=== PATIENT | female | born 1955 | race Caucasian/White ===

== ENCOUNTER 2022-05-24 11:57 | Emergency (ER) | payer MEDICARE, BC, SELFPAY ==
[2022-05-24 12:27] VITALS: BP 199/127; PULSE 115; RESP 16; TEMP 36.2; O2SAT 97; BMI 29.9
[2022-05-24 12:30] VITALS: BP 183/106; PULSE 99; O2SAT 95
--- NOTE | 2022-05-24 12:44 | ED_ITS ---
HPI - Abdominal Pain General Time Seen by Provider: 12:44 Date Seen: 05/24/22 Chief Complaint: Abdominal Pain Stated Complaint: Abdominal pain and black tarry stool Time Seen by Provider: 05/24/22 12:44 Source: patient, RN notes reviewed and old records reviewed Mode of arrival: ambulatory Limitations: no limitations History of Present Illness HPI narrative: Mark Anthony is a very pleasant 67-year-old female with a history of type 2 diabetes, hypertension, sigmoidectomy secondary to diverticulitis with perforation, appendectomy, cholecystectomy and history of polypectomy who comes to the emergency room with concerns regarding dark stools. Patient notes the onset of explosive diarrhea on May 20. She said at that time it felt like the stools were acid and were burning and this flared her hemorrhoids. She has had a little bit of blood from her hemorrhoids but is more concerned about the dark tarry stools that started on TuesdayMay 21. She notes that if she does not eat she does not have stools but as soon as she eats she has increasing pain in the lower abdomen and then dark tarry stools. She states that she has not eaten anything today. The pain in her lower abdomen goes away once she has the bowel movement. She is not his history of GI bleed in the past. She denies any fevers aches or shortness of breath. She also denies any chest pain. MD elicited complaint: abdominal pain (Prior to bowel movements) Pertinent past history: diverticulitis Onset (ago): day(s) Pain Consistency: intermittent Location: suprapubic Severity: moderate Quality: cramping Radiation: none Migration to: no migration Exacerbating factors: eating Relieving factors: nothing Associated symptoms: diarrhea and melena Related Data Home Medications Medication Instructions Recorded Confirmed amlodipine 5 mg tablet 5 mg PO DAILY 05/24/22 05/24/22 aspirin 81 mg tablet,delayed 81 mg PO DAILY 05/24/22 05/24/22 release (Adult Low Dose Aspirin) estradiol 0.01% (0.1 mg/gram) 0.5 appful vaginal 2XW 05/24/22 05/24/22 vaginal cream (Estrace) hydrochlorothiazide 25 mg tablet 25 mg PO DAILY 05/24/22 05/24/22 lisinopril 20 mg tablet 20 mg PO DAILY 05/24/22 05/24/22 metformin 500 mg tablet 500 mg PO BID 05/24/22 05/24/22 omeprazole 20 mg capsule,delayed 20 mg PO DAILY 05/24/22 05/24/22 release simvastatin 20 mg tablet 20 mg PO DAILY 05/24/22 05/24/22 Allergies Allergy/AdvReac Type Severity Reaction Status Date / Time bee venom protein (honey bee) Allergy Intermediate Difficulty Verified 05/24/22 12:24 Breathing latex AdvReac Intermediate Rash Verified 05/24/22 12:24 sulfas Allergy Intermediate Difficulty Uncoded 05/24/22 12:23 Breathing Review of Systems Status of ROS Reports: 10 or more systems reviewed and unremarkable except as noted in History and below Const Denies: fever, chills, fatigue or malaise Eyes Denies: change in vision ENMT Denies: throat pain, neck pain, throat swelling or difficulty swallowing Cardio Denies: chest pain, palpitations, swelling of feet/ankles or shortness of breath with exertion Resp Denies: shortness of breath or cough GI Reports: abdominal pain and blood in stool (Small bright red when hemorrhoids are painful); Denies: nausea, vomiting or difficulty swallowing Denies: painful urination or urinary frequency Musculo Denies: back pain or neck pain Integ/Breast Denies: rash Neuro Denies: headache or numbness in extremities Psych Denies: anxiety Endo Denies: fatigue Allergy/Immuno Denies: throat swelling PFSH PFSH Social History Smoking Status: Unknown if ever smoked How often do you have a drink containing alcohol: monthly or less How often do you have six or more drinks on one occasion: Never AUDIT-C Alcohol total score: 1 Non-prescribed substance use: denies use Exam Narrative: Exam Narrative: Anaphylactic reaction To bee venom. Diverticulitis See scanned 10/06/17 CT A&P from [facility]. 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 See scanned [facility] imaging. Mixed hyperlipidemia Abstracted [facility] record. History of colon polyps On 10/28/11 colonoscopy. Repeat 5Y. Abstracted [facility] record. Type 2 diabetes mellitus Abstracted [facility] record. History of vitamin D deficiency Abstracted [facility] record. Bipolar affective disorder Abstracted [facility] record. Constipation Surgical Problems: S/P laparoscopic-assisted sigmoidectomy & appy/cecectomy for microperforated divertic & appy polyp. See NH&C notes by Dr. George. History of section Abstracted [facility] record. History of tubal ligation Abstracted [facility] record. History of colonoscopy with polypectomy Repeat 5Y/3Y. See NH&C note. Hx laparoscopic cholecystectomy 11/07/18 [facility]&C. Const: Vital Signs, click to edit/add: Vital Signs - 24 hr 05/24/22 12:27 05/24/22 12:30 05/24/22 14:24 Temperature 97.1 F L Pulse Rate [Pulse Oximeter] 115 H 99 85 Respiratory Rate 16 18 Blood Pressure [Ri ght Upper Arm] 199/127 H 183/106 H 146/80 H Pulse Oximetry 97 95 Oxygen Delivery Me thod Room Air Documenting provider has reviewed patient's vital signs: yes Common normals: no apparent distress, average body habitus, oriented x3, healthy appearing, alert and well nourished General appearance: cooperative, comfortable and well kempt HENMT: Common normals: normocephalic, head/scalp atraumatic and external ears normal Head and scalp: normocephalic and atraumatic External ear: external ears normal Eye: Common normals: PERRL General eye: normal appearance of both eyes Pupil: PERRL Neck & C-Spine: Common normals: full ROM, no lymphadenopathy and supple Resp: Common normals: normal respiratory effort and clear to auscultation bilaterally Effort & inspection: able to speak in complete sentences Auscultation: clear to auscultation bilaterally Cardio: Common normals: regular rhythm Rate: tachycardic Rhythm: regular rhythm GI: Common normals: soft to palpation and non-tender Palpation: soft Rectal Exam - Female: external hemorrhoid(s) and heme negative stool Extremity: Common normals: normal to inspection and no pedal edema Neuro: Common normals: oriented x3 Sensorium/orientation: alert Psych: Common normals: mental status grossly normal and thought process normal Appearance: well kempt Thought process: normal thought process Thought content: normal thought content Skin: Common normals: no rashes or lesions noted General skin exam: no rashes or lesions noted Course Course Hospital Course: Patient is noted to have multiple GI procedures including sigmoidectomy, cholecystectomy, polypectomy. Patient will have IV placed and labs drawn to include CBC, comprehensive panel, CRP and urinalysis. Will give 1 L of normal saline. Guaiac today of a small amount of stool was negative. CT pending Reevaluation(s) Reevaluation #1: Patient noted to be feeling better after fluids. Vital Signs Vital signs: Initial Vital Signs Temperature 97.1 F L 05/24/22 12:27 Temperature Source Temporal Artery Scan 05/24/22 12:27 Pulse Rate 115 H 05/24/22 12:27 Respiratory Rate 16 05/24/22 12:27 Blood Pressure 199/127 H 05/24/22 12:27 Blood Pressure Mean 151 05/24/22 12:27 Pulse Oximetry 97 05/24/22 12:27 Oxygen Delivery Method 05/24/22 12:27 Vital Signs Temperature 97.1 F L 05/24/22 12:27 Pulse Rate 115 H 05/24/22 12:27 Respiratory Rate 16 05/24/22 12:27 Blood Pressure 199/127 H 05/24/22 12:27 Pulse Oximetry 97 05/24/22 12:27 Oxygen Delivery Method 05/24/22 12:27 Temperature 97.1 F L 05/24/22 12:27 Pulse Rate 85 05/24/22 14:24 Respiratory Rate 18 05/24/22 14:24 Blood Pressure 146/80 H 05/24/22 14:24 Pulse Oximetry 95 05/24/22 12:30 Oxygen Delivery Method 05/24/22 12:27 MDM - Abdominal Pain MDM Narrative Medical decision making narrative: 1. Gastroenteritis-CT reassuring with no evidence of diverticulitis or colitis. Guaiac negative. Patient does reveal to me that she had taken Pepto-Bismol and I think this is likely the cause of her dark stools. Although, with her history, I do think thorough workup was needed. Hemoglobin is reassuring. White count slightly elevated but no evidence of diverticulitis or UTI. Patient also has reassuring CRP. Will continue to monitor. [place] foods and fluids are recommended. No antibiotics at this time. Doubtful that this is bacterial or food poisoning with patient's lack of vomiting, nausea or fever. 2. Hypertension-patient's blood pressure improved to 146/80. Pulse much improved after normal saline. 3. Disposition-patient is discharged home. Did recommend cessation of tobacco use. Recommend returning for any worsening symptoms and as needed. Medical Records Attestation: I reviewed the patient's medical records. Lab Data Attestation: I reviewed the patient's lab results. Labs: Lab Results 05/24/22 05/24/22 05/24/22 Range/Units 13:20 13:20 13:40 WBC 11.66 H (4.50-11.00) K/uL RBC 4.75 (4.00-5.20) m/uL Hgb 14.6 (12.0-16.0) gm/dL Hct 43.2 (33.0-51.0) % MCV 91 (80-100) fL MCH 31 (26-34) pg MCHC 34 (32-36) gm/dL RDW Coeff of Camilo 12.9 (11.5-15.5) % Plt Count 312 (140-440) K/uL Neut % (Auto) 63.6 (42.0-72.0) % Lymph % (Auto) 28.2 (20-44) % [place] % (Auto) 6.2 (0.0-11.0) % Eos % (Auto) 1.4 (0.0-7.0) % Baso % (Auto) 0.4 (0.0-3.0) % Neut # (Auto) 7.40 H (1.7-7.0) K/uL Lymph # (Auto) 3.30 H (0.90-2.90) K/uL [place] # (Auto) 0.70 (0.00-0.90) K/UL Eos # (Auto) 0.20 (0.00-0.50) K/uL Baso # (Auto) 0.00 (0.00-0.30) K/uL Abs Immat Gran (auto) 0.02 (0.00-0.30) K/uL Sodium 138 (135-149) mmol/L Potassium 3.7 (3.6-5.1) mmol/L Chloride 104 (96-114) mmol/L Carbon Dioxide 26 (20-32) mmol/L BUN 10 (7-30) mg/dL Creatinine 0.8 (0.5-1.5) mg/dL Estimated Creat Clear 52.51 Estimated GFR 82 ml/min Glucose 112 (60-115) mg/dL Calcium 9.5 (8.4-10.6) mg/dL Total Bilirubin 0.4 (0.1-1.5) mg/dL AST 24 (12-35) U/L ALT 20 (4-35) U/L Alkaline Phosphatase 127 (40-150) U/L C-Reactive Protein 0.7 (0.5-1.0) mg/dL Total Protein 7.5 (6.0-8.3) g/dL Albumin 4.4 (3.3-5.0) g/dL Urine Color Yellow (Yellow) Urine Appearance Clear (Clear) Urine pH 6.5 (5.0-8.5) Ur Specific [place] 1.015 (1.000-1.030) Urine Protein Negative (Negative) Urine Glucose (UA) Negative (Negative) Urine Ketones Negative (Negative) Urine Blood Negative (Negative) Urine Nitrite Negative (Negative) Urine Bilirubin Negative (Negative) Urine Urobilinogen 0.2 (0.2-1.0) Ur Leukocyte Esterase Negative (Negative) Imaging Data CT scan - abdomen: Attestation: I have reviewed the pertinent imaging results. My impression: No acute findings Radiologist's impression: No acute findings Discharge Plan Discharge Clinical Impression: Gastroenteritis Patient Disposition: Home, Self-Care Condition: Improved Additional Instructions: Push fluids and bland foods. Seek medical attention and recheck should you have any blood return in your stools. Return also for fever and worsening discomfort. Prescriptions: No Action metformin 500 mg tablet 500 mg PO BID aspirin [Adult Low Dose Aspirin] 81 mg tablet,delayed release (DR/EC) 81 mg PO DAILY lisinopril 20 mg tablet 20 mg PO DAILY omeprazole 20 mg capsule,delayed release(DR/EC) 20 mg PO DAILY amlodipine 5 mg tablet 5 mg PO DAILY estradiol [Estrace] 0.01 % (0.1 mg/gram) cream 0.5 appful vaginal 2XW hydrochlorothiazide 25 mg tablet 25 mg PO DAILY simvastatin 20 mg tablet 20 mg PO DAILY Follow Up/Referrals: Liam Epstein MD [Primary Care Provider] - Stand Alone Forms: [employer] Info Instructions
[2022-05-24] MEDS: 0.9 % SODIUM CHLORIDE 1000 ml 1,000 ML IV (13:05)
--- NOTE | 2022-05-24 13:06 | ED.NURSE ---
Provider performed occult guaiac screen and this was negative
[2022-05-24 13:26] LABS: Basophils Percent Auto 0.4 % (0.0-3.0); Eosinophils Percent Auto 1.4 % (0.0-7.0); Hematocrit 43.2 % (33.0-51.0); Hemoglobin* 14.6 gm/dL (12.0-16.0); Immature Granulocytes Abs Auto 0.02 K/uL (0.00-0.30); Lymphocytes Percent Auto 28.2 % (20-44); Mean Corpuscular HGB Conc 34 gm/dL (32-36); Mean Corpuscular Hemoglobin 31 pg (26-34); Mean Corpuscular Volume 91 fL (80-100); Monocytes Percent Auto 6.2 % (0.0-11.0); Neutrophils Percent Auto 63.6 % (42.0-72.0); Platelet Count* 312 K/uL (140-440); RDW Coefficient of Variation % 12.9 % (11.5-15.5); Red Blood Count 4.75 m/uL (4.00-5.20); White Blood Count* 11.66 K/uL (4.50-11.00)
[2022-05-24 13:29] LABS: Slide Review Reflex No
[2022-05-24 13:48] LABS: Albumin* 4.4 g/dL (3.3-5.0); Chloride* 104 mmol/L (96-114); Sodium* 138 mmol/L (135-149)
[2022-05-24 13:49] LABS: Potassium* 3.7 mmol/L (3.6-5.1)
[2022-05-24 13:49] LABS: Appearance Urine Clear (Clear); Bilirubin Urine Negative (Negative); Blood Urine Negative (Negative); Color Urine Yellow (Yellow); Glucose Urine Negative (Negative); Ketones Urine Negative (Negative); Leukocyte Esterase Urine Negative (Negative); Nitrite Urine Negative (Negative); Protein Urine Negative (Negative); Specific Gravity Urine 1.015 (1.000-1.030); Urobilinogen Urine 0.2 (0.2-1.0); pH Urine 6.5 (5.0-8.5)
[2022-05-24 13:51] LABS: Bilirubin Total* 0.4 mg/dL (0.1-1.5); Creatinine* 0.8 mg/dL (0.5-1.5); Est. Creatinine Clearance* 52.51; Estimated Glomerular Filt Rate 82 ml/min
[2022-05-24 13:52] LABS: Alanine Aminotransferase* 20 U/L (4-35); Alkaline Phosphatase* 127 U/L (40-150); Aspartate Amino Transferase* 24 U/L (12-35); Blood Urea Nitrogen* 10 mg/dL (7-30); Calcium* 9.5 mg/dL (8.4-10.6); Carbon Dioxide* 26 mmol/L (20-32); Glucose* 112 mg/dL (60-115); Total Protein* 7.5 g/dL (6.0-8.3)
[2022-05-24 13:55] LABS: C Reactive Protein* 0.7 mg/dL (0.5-1.0)
--- NOTE | 2022-05-24 14:07 | CRLHL7_ITS ---
For Patients: As a result of the Century Cures Act, medical imaging exams and procedure reports are released immediately into your electronic medical record. You may view this report before your referring provider. If you have questions, please contact your health care provider. INDICATION: Abdominal pain with dark stools. TECHNIQUE: CT abdomen and pelvis acquired with 91 mL Isovue 370 IV contrast. Coronal and sagittal reformats were generated. COMPARISON: CT of the abdomen and pelvis from 10/12/2017. FINDINGS: Lower chest: Bibasilar atelectasis. Liver: Unremarkable. Gallbladder and bile ducts: Surgically absent gallbladder. Prominence of the common bile duct is likely the result of reservoir effect. Spleen: Unremarkable. Small adjacent splenule. Pancreas: Unremarkable. Adrenal glands: Unremarkable. No nodules. Kidneys and Ureters: Unremarkable. No suspicious masses, stones, or hydronephrosis. Cortical hypodensities are probably cysts. Lymph Nodes and Retroperitoneum: Unremarkable. Vasculature: Atherosclerotic calcifications of the abdominal aorta and its branches. GI tract: Unremarkable. Normal in caliber. Probable appendectomy. Suture line in the rectosigmoid region is suggestive of prior low anterior resection. Peritoneum/Abdominal Wall: Unremarkable. No mass or infiltration. No free air or free fluid. Pelvic Viscera: Unremarkable. Bladder: Unremarkable. Bones: Unremarkable for age. IMPRESSION: No significant CT abnormality or findings to explain the cause of the patient`s symptoms. Please note that all CT scans at this facility use dose modulation, iterative reconstruction, and/or weight-based dosing when appropriate to reduce radiation dose to as low as reasonably achievable. Dictated by Cleve Patiño MD @ 05/24/2022 3:07:36 PM (Electronically Signed)
[2022-05-24 14:24] VITALS: BP 146/80; PULSE 85; RESP 18
[2022-05-25 07:47] LABS: RBC Urine 0-2 (0-2); WBC Urine 0-2 (0-5)
== END 2022-05-24 15:46 | disposition home or self-care (01) ==
PROVIDERS: Emergency Provider Family Medicine; PCP Family Medicine
DX: K52.9 Noninfective gastroenteritis and colitis, unspecified (principal); I10 Essential (primary) hypertension
CPT/HCPCS: 36415; 74177; 80053; 81001; 85025; 86140; 99284; 99285; J7030; Q9967

== ENCOUNTER 2022-06-21 10:59 | Outpatient (CLI) | payer MEDICARE, BC, SELFPAY ==
--- OUTSIDE RECORDS SUMMARY | 2022-06-21 10:03 | XMS_ITS | Clinical Summary ---
:1955 Author Organization [email or web address] [facility] [place] [address] Care Team Providers Name Role Phone Magnus Snider MD Unavailable Unavailable Ney Willson MD Primary Care Provider [phone] Allergies Active Allergy Reactions Severity Noted Date Comments Latex Hives 10/26/2011 Sulfa (Sulfonamide Antibiotics) Hives 9 Venom-Honey Bee Respiratory Distress 11/02/2013 Bupropion Rash 03/12/2009 Medications Medication Sig Dispensed Refills Start Date End Date Status EPINEPHrine (EPIPEN) 0.3 Inject 0.3 mg 2 pen 1 03/02/2014 Active mg/0.3 mL (1:1,000) intramuscular one injection time if needed for Allergic Reaction for 1 dose. Cholecalciferol, Vitamin Take 1 tablet by 0 06/01/20 16 Active D3, (VITAMIN D-3) 5,000 mouth once daily. unit tab amLODIPine (NORVASC) 5 Take 1 tablet by 90 tablet 3 10/21/2017 Active mg tabletIndications: mouth once daily. HTN (hypertension) hydroCHLOROthiazide Take 1 tablet by 90 tablet 3 10/21/2017 Active (HCTZ) 25 mg mouth once daily. tabletIndications: HTN (hypertension) lisinopril (PRINIVIL; Take 1 tablet by 90 tablet 3 10/21/2017 Active ZESTRIL) 20 mg mouth once daily. tabletIndications: HTN (hypertension) metFORMIN (GLUCOPHAGE) Take 1 tablet by 2 01/01/2019 Active 500 mg tablet mouth 2 times daily with meals. simvastatin (ZOCOR) 20 Take 1 tablet by 2 01/01/2019 Active mg tablet mouth at bedtime. STOOL SOFTENER-LAXATIVE Take 1 Tab by 0 11/10/2018 Active 8.6-50 mg tablet mouth once daily if needed. CONTOUR NEXT TEST STRIPS 2 01/01/2019 Active strip CONTOUR NEXT METER 0 01/01/2019 Active MICROLET LANCET 2 01/01/2019 Act maria dolores Active Problems Problem Noted Date Vitamin D insufficiency 05/26/2016 Obesity 10/24/2013 Anxiety disorder 10/17/2012 Personal history of colonic polyps 10/28/2011 Overview: Colonoscopy 09/2011 polyp repeat in 5 yea rs Mixed hyperlipidemia 08/24/2010 Impaired fasting glucose 11/08/2008 Bipolar Disorder, Unspecified 10/30/2008 HTN (hypertension) 10/30/2008 Overview: Updated by system to replace inactive re cord TOBACCO ABUSE 07/29/2004 ASTHMA, INTERMITTENT, MILD 07/29/2004 Resolved Problems Problem Noted Date Resolved Date INCONTINENCE - MIXED 07/29/2004 05/10/2012 ELEVATED BLOOD PRESSURE 07/29/2004 10/30/2008 Immunizations Name Administration Dates Next Due Influenza, IIV3 (Age >=3 years) 05/16/2013, 06/12/2012 Influenza, IIV4 10/10/2017, 07/13/2016 Pneumococcal Poly,23-Valent (Pneumovax) 08/08/2012 Tdap 08/15/2010 Family History Medical History Relation Name Comments Heart Disease Brother 1 Nathen aortic aneurysm Hypertension Brother 2 Bi Psychiatric illness Brother 3 Depression, ?mood d/o Psychiatric illness Daughter PDO, BPAD Cancer Father Carl Esophageal/Bone Cancer-colon Father Carl Cancer-prostate Father Carl Heart Disease Maternal Aunt Cancer-breast Maternal Grandmother Alcohol/Drug Mother Kanchan ETOH Genetic Other mother HTN, urge /stress incontinence~fat her age 67, prostate CA, col on CA, other primaries~brothe r aortic aneurysm repair age 49~so n A\T\W~grandparen ts DM Diabetes Paternal Grandfather Cancer-breast Paternal Grandmother Psychiatric illness Sister BPAD Psychiatric illness Son Depression, anxiety Anesthesia Problem No Family History Relation Name Status Comments Brother 1 Nathen Alive Aortic Aneurysm Repair Brother 2 Bi Alive Brother 3 Daughter Father Carl (Age 66) Maternal Aunt Maternal Grandmother Mother Kanchan Alive Other Paternal Grandfather Paternal Grandmother Sister Son Social History Tobacco Use Types Packs/Day Years Used Date Current Every Day Smoker Cigarettes 1 40 Daniel t: 11/30/2017 Smokeless Tobacco: Never Used Tobacco Cessation: Ready to Quit: No; Co unseling Given: Yes Alcohol Use Standard Drinks/Week Comments No 0 (1 standard drink = 0.6 oz pure Heavy use 18-25, 5 CD treatments alcohol) Alcohol Habits Answer Date Recorded How often do you have a drink Not asked containing alcohol? How many drinks containing alcohol do Not asked you have on a typical day when you are drinking? How often do you have six or more Not asked drinks on one occasion? Comment: Heavy use 18-25, 5 CD treatments 013 Sex Assigned at Date Recorded Not on file Obstetrics History Para Term AB IAB SAB Ectopic Multiple Living Live Births 4 2 1 1 2 Date Outcome GA Total Labor/2nd/3rd Weight Sex Delivery Anes PTL Hanh A 1 A5 Name Clin Labor Para Para SAB Last Filed Vital Signs Vital Sign Reading Time Taken Comments Blood Pressure 132/84 01/08/2019 9:44 AM CDT Pulse 82 01/08/2019 9:44 AM CDT Temperature 36.6 ??C (97.9 ??F) 01/08/2019 9:44 AM CDT Respiratory Rate 16 01/08/2019 9:44 AM CDT Oxygen Saturation 99% 01/08/2019 9:44 AM CDT Inhaled Oxygen - - Concentration Weight 90.5 kg (199 lb 9.6 01/08/2019 9:44 AM Pt weighe d with shoes oz) CDT on. Height 167 cm (5' 5.75) 01/03/2018 10:40 AM CDT Body Mass Index 32.46 01/03/2018 10:40 AM CDT Plan of Treatment Health Maintenance Due Date Last Done Comments COVID-19 vaccine series (#1) 1955 Zoster (shingles) series for age 0602/09/2007 50+ (1 of 2) Pneumococcal series for age 65+ (2 08/08/2013 08/08/2012 - PCV) Depression screening for age 12+ 10/05/2018 10/05/2017, 01/2017, 03/26/2016, Additional history exists BMI (ht and wt on same day) for 01/03/2019 01/03/2018, 11/27, age 18+ 11/04/2017, Additional history exists Mammogram for age 45-75 01/03/2019 01/03/2018, 06/01/2016, 01/08/2015, Additional history exists Tetanus booster 08/15/2020 08/15/2010 DEXA/DXA scan for age 65+ 2022 Influenza for age 65+ 04/29/2022 10/10/2017, 07/13/2016, 05/16/2013, Additional history exists Lipids for age 45-75 09/06/2022 09/06/2017, 06/03/2016, 01/08/2015, Additional history exists Colonoscopy through age 75 07/14/2023 07/14/2018, 8, 11/30/2017, Additional history exists Pap test for age 21-65 03/16/2024 03/16/2021, 03/16/2021, 10/06/2011, Additional history exists Tdap Completed 08/15/2010 Hepatitis C screening for age Completed 10/06/2011 18-79 Results Not on filefrom Last 3 Months Insurance Payer Benefit Plan / Subscriber ID Effective Dates Phone Addre ss Type Group [employer] [place] [employer] [place] [id number] 2016-Present [address] [address] [place] [address] [employer] [place] [employer] [id number] 2018-Present [address] [address] [place] [address] Guarantor Name Account Type Relation to Date of Phone Bill ing Patient Address Luis Shah Personal/Family 08/28/1956 [address] (Home) [address] [place] [address] Care Teams Phlebotomy Coordinator Relationship Specialty Start Date End Date Ney Willson, PCP - General Family Practice 10/18/[address] [address] Magnus Snider MD Gynecology Obstetrics and Gynecology 10/06/11
[2022-06-21 11:18] LABS: Cholesterol* 206 mg/dL (90-199); Triglycerides* 165 mg/dL (40-149)
[2022-06-21 11:19] LABS: HDL Cholesterol* 48 mg/dL (>=50); LDL Cholesterol Calculated 125 mg/dL (<100)
[2022-06-21 11:24] LABS: Creatinine Urine 42.1 mg/dL
[2022-06-21 11:28] LABS: Microalbumin Creatinine Ratio 20 mg/g (0-30); Microalbumin Urine < 1 mg/dL
[2022-06-21 11:35] LABS: Vitamin D 25 Hydroxy* 43 ng/mL (30-80)
== END 2022-06-21 11:00 | disposition home or self-care (01) ==
PROVIDERS: PCP Family Medicine; Visit Provider Family Medicine
DX: Z00.00 Encounter for general adult medical examination without abnormal findings (principal); E11.9 Type 2 diabetes mellitus without complications; E55.9 Vitamin D deficiency, unspecified; I10 Essential (primary) hypertension; E78.5 Hyperlipidemia, unspecified
CPT/HCPCS: 80061; 82043; 82306; 82570

== ENCOUNTER 2022-09-08 06:51 | Day surgery (SDC) | payer MEDICARE, BC, SELFPAY ==
[2022-09-08] VITALS (7 sets, daily range): BP systolic 137–167; BP diastolic 64–82; PULSE 78–97; RESP 16–18; TEMP 36.5–36.6; O2SAT 95–98; BMI 29.8
[2022-09-08] MEDS: BUPIVACAINE 0.5% 30 ML INJECTION (07:05)
[2022-09-08] MEDS: LIDOCAINE 1 % PF 30 ML INJECTION (07:18)
--- NOTE | 2022-09-08 08:17 | P.ORPRC_ITS ---
Procedure Note Date of procedure: 09/08/22 Procedure: PREOPERATIVE DIAGNOSIS: 1. Right index finger volar middle phalangeal benign mass POSTOPERATIVE DIAGNOSIS: 1. Right index finger volar middle phalangeal benign mass PROCEDURE: 1. Right index finger volar middle phalangeal benign mass open excision SURGEON: Rigo Araiza MD. WAREHOUSE RECEIVER: MISTY Soto - Of note, an bioinformatics assistant was critical for this case to aid in patient positioning, tissue retraction, limb manipulation/positioning, and closure. ANESTHESIA: Local anesthetic digital block (50:50 mixture of 2% lidocaine plain and 0.5% marcaine plain) IMPLANTS: None TOURNIQUET: Digital tourniquet for proximally 8 minutes COMPLICATIONS: None evident INDICATIONS: The patient is a pleasant 67-year-old female who has experienced right index finger middle phalangeal volar growth/mass development. This is painful and does cause some functional limitations for her. Nonoperative management has been tried but unsuccessful. Given the failure of nonoperative management, and how this affects daily life, surgery was recommended. DESCRIPTION OF PROCEDURE: Following a thorough discussion of risks, benefits, and alternatives consent was obtained and the operative extremity was marked. The patient was brought to the operating room and placed supine on the operating table. No antibiotics were administered as this was planned to be a local case only. Proper time-out was performed identifying proper patient, site, and procedure. The operative extremity was prepped and draped in the appropriate sterile fashion using ChloraPrep. The limb was exsanguinated and the tourniquet inflated. Hunter type incision was made across the middle phalanx diagonally. Sharp incision through skin and blunt dissection down to the flexor tendon sheath allowed us to immediately identify the mass/growth on the radial aspect of the volar middle phalangeal region. The growth/mass was discrete and buried well defined/distinguish from the surrounding tissue. It did seem to have a connection/vascular connection on the volar radial aspect. Bipolar cautery was utilized for this portion. The mass was removed EN bloc and sent for permanent pathology. Thorough irrigation normal saline was then performed. Tourniquet was released and hemostasis achieved. Closure was performed with 4-O nylon. Soft dressings were applied, and the patient was awoken/transferred to the recovery room in stable condition. PLAN: 1. Encourage elevation of the operative extremity. 2. Range of motion of the operative extremity/digits as tolerated. 3. Ibuprofen, acetaminophen and/or Percocet as needed for pain. 4. Follow up with PA visit in 12-16 days for wound check and suture removal.
[2022-09-08] MEDS: NEOMYCIN/BACITRACIN/POLYMYXIN B 1 APPLIC TOPICAL (08:18)
== END 2022-09-08 08:50 | disposition home or self-care (01) ==
PROVIDERS: PCP Family Medicine; Visit Provider Orthopaedic Surgery Sports Medicine
PROC: (CPT 26111; principal; 2022-09-08 07:45)
DX: D23.61 Other benign neoplasm of skin of right upper limb, including shoulder (principal)
CPT/HCPCS: 26111; 88305; 88341; 88342; J2001; J3490

== ENCOUNTER 2023-07-14 09:22 | Outpatient (CLI) | payer MEDICARE, BC, SELFPAY | END 2023-07-14 09:23 | disposition home or self-care (01) | LOC: NFLDREF 07-22 05:39 | PROVIDERS: PCP Family Medicine; Referring Provider Family Medicine; Visit Provider Family Medicine | DX: Z00.00 Encounter for general adult medical examination without abnormal findings (principal); E11.9 Type 2 diabetes mellitus without complications; I10 Essential (primary) hypertension; E78.2 Mixed hyperlipidemia | CPT/HCPCS: 80053; 80061; 82043; 82570 ==

== ENCOUNTER 2023-07-25 06:27 | Outpatient (CLI) | payer MEDICARE, BC, SELFPAY ==
--- NOTE | 2023-07-25 08:00 | W.ANESCHARGE ---
Anesthesia Charges Start Date/Time Anesthesia Start Date: 07/25/23 Anesthesia Start Time: 07:20 Stop Date/Time Anesthesia Stop Date: 07/25/23 Anesthesia Stop Time: 07:47
--- NOTE | 2023-07-25 10:34 | W.ANESCHARGE ---
Anesthesia Charges Start Date/Time Anesthesia Start Date: 07/25/23 Anesthesia Start Time: 07:20 Stop Date/Time Anesthesia Stop Date: 07/25/23 Anesthesia Stop Time: 07:47
== END 2023-07-25 06:28 | disposition home or self-care (01) ==
LOC: OP CLINIC 06:28
PROVIDERS: PCP Family Medicine; Visit Provider Internal Medicine
DX: Z12.11 Encounter for screening for malignant neoplasm of colon (principal); K63.5 Polyp of colon; K57.30 Diverticulosis of large intestine without perforation or abscess without bleeding; Z86.010 Personal history of colon polyps
CPT/HCPCS: 00811; 45380; 88305; J2704

== ENCOUNTER 2023-08-01 08:51 | Outpatient (CLI) | payer MEDICARE, BC, SELFPAY ==
--- NOTE | 2023-08-01 08:45 | CRLHL7_ITS ---
For Patients: As a result of the Cures Act, medical imaging exams and procedure reports are released immediately into your electronic medical record. You may view this report before your referring provider. If you have questions, please contact your health care provider. DIGITAL DIAGNOSTIC LEFT MAMMOGRAM PERFORMED WITH TOMOSYNTHESIS AND COMPUTER-AIDED DETECTION LEFT BREAST ULTRASOUND CLINICAL HISTORY: LEFT breast lump. COMPARISON: 04/20/2021. TECHNIQUE: Digital BILATERAL mammogram in four projections. Tomosynthesis and CAD utilized. Real-time ultrasound imaging of LEFT breast with imaging documentation. BREAST COMPOSITION: There are areas of scattered fibroglandular density. FINDINGS: 3D CC/MLO BILATERAL mammogram images submitted. Benign calcifications are present bilaterally. No suspicious masses or architectural distortion. No adenopathy. Targeted LEFT breast ultrasound performed at 10 o`clock 4 cm from the nipple. In this location there is a hypoechoic focus measuring 3 x 3 x 3 millimeters immediately beneath the skin within associated tract to the skin surface. No abnormal vascularity. IMPRESSION: Benign 3 millimeter sebaceous cyst LEFT breast 10 o`clock 4 cm from the nipple. No evidence of malignancy. RECOMMENDATIONS: Annual BILATERAL screening mammography. Results and recommendations discussed with the patient. BI-RADS Category 2: Benign A lay language report of this examination will be provided to the patient. Dictated by Sunny Park MD @ 08/01/2023 10:04:51 AM j/Dictated by: Sunny Park MD @ 08/01/2023 10:04:00 AM (Electronically Signed)
--- NOTE | 2023-08-01 09:15 | CRLHL7_ITS ---
For Patients: As a result of the Cures Act, medical imaging exams and procedure reports are released immediately into your electronic medical record. You may view this report before your referring provider. If you have questions, please contact your health care provider. PLEASE SEE DIGITAL DIAGNOSTIC LEFT MAMMOGRAM PERFORMED SAME DAY CRL:agustin velez/Dictated by: Sunny Park MD @ 08/01/2023 10:04:00 AM (Electronically Signed)
== END 2023-08-01 08:52 | disposition home or self-care (01) ==
PROVIDERS: PCP Family Medicine; Visit Provider Family Medicine
DX: N63.21 Unspecified lump in the left breast, upper outer quadrant (principal)
CPT/HCPCS: 76642; 77066; G0279

== ENCOUNTER 2023-09-15 15:32 | Outpatient (CLI) | payer MEDICARE, BC, SELFPAY ==
--- NOTE | 2023-09-15 15:30 | CRLHL7_ITS ---
For Patients: As a result of the Century Cures Act, medical imaging exams and procedure reports are released immediately into your electronic medical record. You may view this report before your referring provider. If you have questions, please contact your health care provider. DXA BONE MINERAL DENSITY STUDY Current height (in): 66.0. Weight (lb): 192.0. Menopause age: 52. Ethnicity: White. Reason for exam: Asymptomatic menopausal state. 1. Have you had a previous hip or vertebral fracture? No. 2. Have you had any fractures during your adult life which did not result from significant trauma (e.g., auto accident)? No. 3. Did either of your parents have a hip fracture? No. 4. Do you smoke? Yes. 5. Have you ever taken Glucocorticoids? No. 6. Do you have rheumatoid arthritis? No. 7. Do you have secondary osteoporosis? No. 8. Do you drink 3 or more alcoholic drinks per day? No. 9. Are you being treated for osteoporosis? No. 10. Have you ever taken any of the following medications: Actonel, Evista, Fosamax, Miacalcin, Reclast, Boniva, Forteo, HRT (i.e. estrogen/hormone therapy), Protelos, Prolia, Vitamin D, Calcium, other ??? please specify. ANSWER: Yes, vitamin D. 11. Do you have any of the following medical conditions: Anorexia or bulimia, asthma or emphysema, end stage renal disease, hyperparathyroidism, any seizure disorders, cancer, inflammatory bowel diseases, hysterectomy, other ??? please specify. ANSWER: Yes, asthma or emphysema. 12. What was your maximum height (inches)? 66. 13. Do you perform weight bearing exercise regularly? No. 14. Do you regularly consume dairy products? Yes. 15. Do you drink caffeinated beverages? Yes. 16. At what age did your period start? 18. 17. Are you premenopausal? No. 18. How many full term pregnancies have you had? 2. 19. Have you ever missed your period for more than 6 months in a row (not including or menopause)? No. TECHNIQUE: Bone mineral density study was performed using the [employer]. FINDINGS: The results of the study expressed as bone mineral density (BMD) are as follows: Lumbar spine L1 to L4: BMD: 0.859 g/cm2. T-score: -1.7. Z-score: 0.2 Neck Left: BMD: 0.656 g/cm2. T-score: -1.7. Z-score: -0.1 Right: BMD: 0.675 g/cm2. T-score: -1.6. Z-score: 0.0 Total Left: BMD: 0.766 g/cm2. T-score: -1.4. Z-score: -0.1 Right: BMD: 0.786 g/cm2. T-score: -1.3. Z-score: 0.0 IMPRESSION: Osteopenia. FRAX 10-year Fracture Risk Major Osteoporotic Fracture: 9.8 percent Hip Fracture: 2.1 percent Reported Risk Factors: [place] () Neck BMD = 0.656, BMI = 31.0 Contreras Delgado M.D. Diagnostic Radiologist [email or web address] Transcribed: 11:33 am DW/Dictated by: Contreras Delgado MD @ 09/16/2023 9:49:00 AM (Electronically Signed)
--- OUTSIDE RECORDS SUMMARY | 2023-09-15 15:39 | XMS_ITS | Clinical Summary ---
Author Name Unknown Organization [facility] Address [place], [place] [address] Care Team Providers Care Dinkey Engineer Name Role Phone Magnus Snider MD Unavailable Unavailable Ney Willson MD Primary Care Provider Allergies Active Allergy Reactions Criticality Noted Date Comments Latex Hives 10/26/2011 Sulfa (Sulfonamide Antibiotics) Hives 11/2008 Venom-Honey Bee Respiratory Distress 11/02/2013 Bupropion Rash 03/12/2009 Medications Medication Sig Dispensed Refills Start Date End Date Status EPINEPHrine (EPIPEN) 0.3 mg/0.3 mL (1:1,000) injection Inject 0.3 mg intramuscular one time if needed for Allergic Reaction for 1 dose. 2 pen 1 03/02/2014 Active Cholecalciferol, Vitamin D3, (VITAMIN D-3) 5,000 unit tab Take 1 tablet by mouth once daily. 0 06/01/2016 Active amLODIPine (NORVASC) 5 mg tabletIndications: HTN (hypertension) Take 1 tablet by mouth once daily. 90 tablet 3 10/21/2017 Active hydroCHLOROthiazid e (HCTZ) 25 mg tabletIndications: HTN (hypertension) Take 1 tablet by mouth once daily. 90 tablet 3 10/21/2017 Active lisinopril (PRINIVIL; ZESTRIL) 20 mg tabletIndications: HTN (hypertension) Take 1 tablet by mouth once daily. 90 tablet 3 10/21/2017 Active metFORMIN (GLUCOPHAGE) 500 mg tablet Take 1 tablet by mouth 2 times daily with meals. 2 01/01/2019 Active simvastatin (ZOCOR) 20 mg tablet Take 1 tablet by mouth at bedtime. 2 01/01/2019 Active STOOL SOFTENER-LAXATIVE 8.6-50 mg tablet Take 1 Tab by mouth once daily if needed. 0 11/10/2018 Active CONTOUR NEXT TEST STRIPS strip 2 01/01/2019 Active CONTOUR NEXT METER 0 01/01/2019 Active MICROLET LANCET 2 01/01/2019 Active Active Problems Problem Noted Date Diagnosed Date Vitamin D insufficiency 05/26/2016 Obesity 10/24/2013 Anxiety disorder 10/17/2012 Personal history of colonic polyps 10/28/2011 Overview: Colonoscopy 09/2011 polyp repeat in 5 years Mixed hyperlipidemia 08/24/2010 Impaired fasting glucose 11/08/2008 Bipolar Disorder, Unspecified 10/30/2008 HTN (hypertension) 10/30/2008 Overview: Updated by system to replace inactive record TOBACCO ABUSE 07/29/2004 ASTHMA, INTERMITTENT, MILD 07/29/2004 Resolved Problems Problem Noted Date Diagnosed Date Resolved Date INCONTINENCE - MIXED 07/29/2004 012 ELEVATED BLOOD PRESSURE 07/29/2004 03/0 11/2008 Encounters Date Type Department Care Team Description 07/25/2023 Lab Requisition [facility] [phone] Tray Gomez MD from Last 3 Months Immunizations Name Administration Dates Next Due Influenza, IIV3 (Age >=3 years) 05/16/2013,06/12 Influenza, IIV4 10/10/2017,07/13/2016 Pneumococcal Poly,23-Valent (Pneumovax) 08/08/20 12 Tdap 08/15/2010 Family History Medical History Relation Name Comments Heart Disease Brother 1 Nathen aortic aneurys m Hypertension Brother 2 Bi Psychiatric illness Brother 3 Depressi on, ?mood d/o Psychiatric illness Daughter PDO, BPA D Cancer Father Carl Esophageal/Bone Cancer-colon Father Carl Cancer-prostate Father Carl Heart Disease Maternal Aunt Cancer-breast Maternal Grandmother Alcohol/Drug Mother Kanchan ETOH Genetic Other mother HTN, urg e/stress incontinence~father age 67, prostate CA, colon CA, other primaries~brother aortic aneurysm repair age 49~son A\T\W~grandparents DM Diabetes Paternal Grandfather Cancer-breast Paternal Grandmother Psychiatric illness Sister BPAD Psychiatric illness Son Depressi on, anxiety Anesthesia Problem No Family History Relation Name Status Comments Brother 1 Nathen Alive Aortic Aneurysm Repair Brother 2 Bi Alive Brother 3 Daughter Father Carl (Age 66) Maternal Aunt Maternal Grandmother Mother Kanchan Alive Other Paternal Grandfather Paternal Grandmother Sister Son Social History Tobacco Use Types Packs/Day Years Used Date Smoking Tobacco: Every Day Cigarettes 1 40 Started: 11/30/1977; Last attempted to quit: 11/30/2017 Smokeless Tobacco: Never Tobacco Cessation:Ready to Q uit: No; Counseling Given: Yes Alcohol Use Standard Drinks/Week Comments No 0 (1 standard drink = 0.6 oz pure alcohol) Heavy use 18-25, 5 CD treatments Sex and Gender Information Value Date Recorded Sex Assigned at Not on file Gender Identity Not on file Sexual Orientation Not on file Obstetrics History Para Term AB IAB SAB Ectopic Multiple Livin g Live Births 4 2 1 1 2 Date Outcome GA Total Labor Labor//3rd Weight Sex Delivery Anes PTL Hanh A1 A5 Name Cl in Para Para SAB Last Filed Vital Signs Vital Sign Reading Time Taken Comments Blood Pressure 132/84 01/08/2019 9:44 AM CDT Pulse 82 01/08/2019 9:44 AM CDT Temperature 36.6 ??C (97.9 ??F) 01/08/2019 9 :44 AM CDT Respiratory Rate 16 01/08/2019 9:44 AM CDT Oxygen Saturation 99% 01/08/2019 9:4 4 AM CDT Inhaled Oxygen Concentration - - Weight 90.5 kg (199 lb 9.6 oz) 01/08/2019 9:44 AM CDT Pt weighed with shoes on. Height 167 cm (5' 5.75) 01/03/2018 10: 40 AM CDT Body Mass Index 32.46 01/03/2018 10:40 AM CDT Plan of Treatment Health Maintenance Due Date Last Done Comments COVID-19 vaccine series (#1) 1955 Zoster (shingles) series for age 50+ (1 of 2) 2007 Depression screening for age 12+ 10/05/2018 10/05/2017, 09/03/2016, 03/26/2016, Additional history exists BMI (ht and wt on same day) for age 18+ 01/03/2019 01/03/2018, 12/07/2017, 11/04/2017, Additional history exists Mammogram for age 45-75 01/03/2019 01/04/20 18, 06/01/2016, 01/08/2015, Additional history exists Tetanus booster 08/15/2020 08/15/2010 DEXA/DXA scan for age 65+ 2022 Pneumococcal series for age 65+ (2 of 2 - PCV) 2022 08/08/2012 Lipids for age 45-75 09/06/2022 09/06/2017, 06/03/2016, 01/08/2015, Additional history exists Influenza for age 65+ 04/29/2023 10/10/2017 , 07/13/2016, 05/16/2013, Additional history exists Colonoscopy through age 75 07/14/202307/14, 11/30/2017, 11/30/2017, Additional history exists Tdap Completed 08/15/2010 Hepatitis C screening for ag e 18-79 Completed 10/06/2011 Procedures Procedure Name Priority Date/Time Associated Diagnosis Comments LAB TRACKING EVENT Routine 07/25/2023 7: 40 AM ELECTRON MICROPROBE OPERATOR PATH TISSUE EXAM Routine 07/25/2023 7:40 AM ELECTRON MICROPROBE OPERATOR from Last 3 Months Results * LAB TRACKING EVENT (07/25/2023 7:40 AM ELECTRON MICROPROBE OPERATOR) Other (Other) Client Collect / Unknown 07/25/2023 7:40 AM ELECTRON MICROPROBE OPERATOR 07/25/2023 9:00 PM ELECTRON MICROPROBE OPERATOR Tray Gomez MD LAB BILL ONLY [facility] [address] [place] [address], * PATH TISSUE EXAM (07/25/2023 7:40 AM ELECTRON MICROPROBE OPERATOR) Case Report Pathology Report ?Case: [id number] ? Authorizing Provider: ??Tray Gomez MD ?Collected: ? 07/25/2023 0740 ? Ordering Location: ? [facility] ?Received: ?07/26/2023 0734 ? Pathologist: ? Genaro Pineda, ? MD ? Specimen: ?Sigmoid Polyp ? 07/27/2023 11:25 AM [facility] Final Diagnosis A) COLON, SIGMOID, POLYPECTOMY: 1. Tubular adenoma 2. Negative for high grade dysplasia 3. Per the colonoscopy report: ?? a. Polyp size: 4 mm ?? b. Resection: Complete ?? c. Retrieval: Complete 07/27/2023 11:25 AM [facility] Clinical Information History of colon polyps 07/27/2023 11:25 AM [facility] Gross Description A) Received in formalin are 6 paiz mucosal fragments ranging from 1 mm to 3 mm in greatest dimension, which are entirely submitted in one cassette. It is labeled with the patient's name and designated sigmoid polyp. Teresa Berg 07/26/2023 11:18 AM 07/27/2023 11:25 AM ELECTRON MICROPROBE OPERATOR [facility] Microscopic Description The final diagnosis is based on microscopic examination of appropriate sections of all specimens. 07/27/2023 11:25 AM ELECTRON MICROPROBE OPERATOR [facility] Additional Information Interpreted at [facility] - [address], [place] [address] 07/27/2023 11:25 AM ELECTRON MICROPROBE OPERATOR [facility] Other (Sigmoid Polyp) 07/25/2023 7:40 AM ELECTRON MICROPROBE OPERATOR 07/26/2023 7:34 AM ELECTRON MICROPROBE OPERATOR Tray Gomez MD PATHOLOGY/CYTOLOGY [facility] [address] [place] [address], from Last 3 Months Care Teams Dinkey Engineer Relationship Specialty Start Date End Date Ney Willson MD [facility] [place] [address] PCP - General Family Practice 10/18/13 Magnus Snider MD Gynecology Obstetrics and Gynecology 10/06/11
== END 2023-09-15 15:33 | disposition home or self-care (01) ==
PROVIDERS: PCP Family Medicine; Visit Provider Family Medicine
DX: Z78.0 Asymptomatic menopausal state (principal); M85.89 Other specified disorders of bone density and structure, multiple sites
CPT/HCPCS: 77080

== ENCOUNTER 2023-12-07 06:10 | Emergency (ER) | payer MEDICARE, BC, SELFPAY ==
[2023-12-07 06:20] VITALS: BP 151/89; PULSE 94; RESP 20; TEMP 37.1; O2SAT 96; BMI 31.6
--- NOTE | 2023-12-07 06:44 | CT_ITS ---
Patient: KARI CANNON Facility:?[facility] Patient ID:?[id number] Site Patient ID:?[id number]. Site :?[id number] Study:?CT-Head W/O-12/07/2023 6:58:10 AM Ordering Physician:FLORA Final Report: INDICATION: Stroke-like symptoms COMPARISON: None. TECHNIQUE: CT of the head without contrast. Multiplanar reformats are included. FINDINGS: No intracranial hemorrhage. No acute or subacute cortically based infarct. Normal appearance of the white matter. Normal ventricles. No skull fractures. No worrisome focal bone lesion. IMPRESSION: Normal head CT. Please note that all CT scans at this facility use dose modulation, iterative reconstruction, and/or weight-based dosing when appropriate to reduce radiation dose to as low as reasonably achievable. Dictated by Lee Ann Servin MD @ 12/07/2023 7:09:01 AM Signed by:?Lee Ann Servin MD @12/07/2023 7:09:01 AM (Electronic Signature)
--- NOTE | 2023-12-07 06:57 | ED.GENADULT ---
HPI - General Adult General Chief complaint: Hypertension Stated complaint: BP concerns Time Seen by Provider: 12/07/23 06:31 Source: patient Mode of arrival: ambulatory Limitations: no limitations History of Present Illness HPI narrative: 68-year-old female, smoker, diabetic with a history of hypertension presents to the emergency department with neurological changes that lasted for about 10-15 minutes, 30 minutes prior to arrival. Patient reports the for the last week or so, she has noticed poor exercise tolerance. She has had increased sweating and fatigue with exercise but certainly no chest pain. Last stress test was about 2 years ago per her estimate and she reports that this was normal. She does take aspirin and a statin daily. 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 This time she had a little bit of numbness in her left shoulder blade that radiated down the dorsal surface of her arm, did not affect her fingers. No vision changes, no speech changes, no movement deficit. To simply a numbness, paresthesia type feeling. She does not have a history of cervical radiculopathy as far as she knows, no trauma or injury. It was not accompanied by shortness of breath. She drove herself here and is currently asymptomatic. As stated, she does smoke, is diabetic and has high blood pressure. Multiple risk factors for heart or cerebrovascular disease. No prior history of strokes. Reports that she does take a baby aspirin daily. No prior history of similar symptoms. Past medical history notable for type 2 diabetes, controlled on metformin, hypertension, hyperlipidemia, bipolar disorder. Home medications are reviewed, she lists these the same as what we have accurate in EMR. Primary care provider is Dr. Reich notable for the neurological and sweating as described above only, otherwise denies times 12 systems. Related Data Home Medications Medication Instructions Recorded Confirmed aspirin 81 mg tablet,delayed 81 mg PO DAILY 05/24/22 12/07/23 release (Adult Low Dose Aspirin) Diabetic Test Strips 06/23/22 10/06/23 ergocalciferol (vitamin D2) 10 mcg 400 unit PO DAILY 06/23/22 10/06/23 (400 unit) tablet lancets (Fingerstix Lancets) 06/23/22 10/06/23 Previous Rx's Medication Instructions Recorded incontinence pad, liner, disp #100 ea 10/26/22 albuterol sulfate 90 mcg/actuation 2 puff inhalation Q4H PRN asthma 07/18/23 aerosol inhaler #8.5 grams amlodipine 5 mg tablet 5 mg PO QDAY #90 tabs 07/18/23 atorvastatin 20 mg tablet 20 mg PO QHS #90 tabs 07/18/23 epinephrine 0.3 mg/0.3 mL 0.3 ml IM .As Needed as needed PRN 07/18/23 injection, auto-injector anaphylaxis #2 ea hydrochlorothiazide 25 mg tablet See Rx Instructions .Route 07/18/23 .COMPLEX #90 tabs lisinopril 20 mg tablet 20 mg PO QDAY #90 tabs 07/18/23 metformin 500 mg tablet See Rx Instructions .Route 07/18/23 .COMPLEX #180 tabs omeprazole 20 mg capsule,delayed See Rx Instructions .Route 07/18/23 release .COMPLEX #90 caps metoprolol succinate 25 mg 25 mg PO DAILY #90 tabs 12/07/23 tablet,extended release 24 hr nitroglycerin 0.4 mg sublingual 0.4 mg sublingual Q5-15M PRN chest 12/07/23 tablet pain #10 tabs Allergies Allergy/AdvReac Type Severity Reaction Status Date / Time bee venom protein (honey bee) Allergy Intermediate Difficulty Verified 12/07/23 06:20 Breathing bupropion Allergy Mild Rash Verified 12/07/23 06:20 Sulfa (Sulfonamide Allergy Mild Rash Verified 12/07/23 06:20 Antibiotics) house dust Allergy Verified 12/07/23 06:20 perfume Allergy Verified 12/07/23 06:20 pollen extracts Allergy Verified 12/07/23 06:20 latex AdvReac Intermediate Rash Verified 12/07/23 06:20 [facility] Medical History Tobacco use ?Z72.0 - Tobacco use (ICD-10) History of vitamin D deficiency (2013) ?Z86.39 - Personal history of other endocrine, nutritional and metabolic disease (ICD-10) History of histoplasmosis ?Z86.19 - Personal history of other infectious and parasitic diseases (ICD-10) History of colonic polyps (10/28/11) ?Z86.010 - Personal history of colonic polyps (ICD-10) Surgical History H/O excision of ganglion cyst (09/08/22) ?Z98.890 - Other specified postprocedural states (ICD-10) S/P appendectomy ?Z90.49 - Acquired absence of other specified parts of digestive tract (ICD-10) Status post laparoscopic-assisted sigmoidectomy (12/01/17) ?Z90.49 - Acquired absence of other specified parts of digestive tract (ICD-10) History of tubal ligation ?Z98.51 - Tubal ligation status (ICD-10) History of laparoscopic cholecystectomy (11/07/18) ?Z90.49 - Acquired absence of other specified parts of digestive tract (ICD-10) History of colonoscopy with polypectomy (11/30/17) ?Z98.890 - Other specified postprocedural states (ICD-10) ?Z86.010 - Personal history of colonic polyps (ICD-10) History of section (1985) ?Z98.891 - History of uterine scar from previous surgery (ICD-10) Social History Narrative: Patient is retired. Smoking Status: Current every day smoker How often do you have a drink containing alcohol: monthly or less How often do you have six or more drinks on one occasion: Never AUDIT-C Alcohol total score: 1 Non-prescribed substance use: denies use Little interest or pleasure in doing things: not at all Feeling down, depressed, or hopeless: not at all Exam Const: Vital Signs, click to edit/add: Vital Signs - 24 hr 12/07/23 06:20 Temperature 98.7 F Pulse Rate [Pulse Oximeter] 94 Respiratory Rate 20 Blood Pressure [Ri ght Upper Arm] 151/89 H Pulse Oximetry 96 Oxygen Delivery Me thod Room Air Documenting provider has reviewed patient's vital signs: yes Common normals: no apparent distress, oriented x3 and alert General appearance: comfortable and well kempt HENMT: Common normals: normocephalic and oropharynx normal Head and scalp: normocephalic Mouth: oral and palatal mucosa normal Eye: Common normals: PERRL and EOMs intact bilaterally General eye: normal appearance of both eyes Pupil: PERRL Neck & C-Spine: Common normals: full ROM and no lymphadenopathy Cervical spine: cervical ROM normal; no cervical spine tenderness Resp: Common normals: normal respiratory effort, no use of accessory muscles and clear to auscultation bilaterally Effort & inspection: able to speak in complete sentences Auscultation: clear to auscultation bilaterally Cardio: Common normals: regular rate, regular rhythm, S1 normal heart sound, S2 normal heart sound and no murmurs Rate: regular rate Rhythm: regular rhythm Heart sounds: S1 normal and S2 normal GI: Common normals: Normal to inspection, nondistended, normoactive bowel sounds present, soft to palpation, non-tender, no hepatosplenomegaly and no masses Palpation: soft and no hepatosplenomegaly Extremity: Common normals: normal to inspection, full ROM, normal capillary refill and no pedal edema Neuro: Common normals: oriented x3, CN's II-XII intact bilaterally, moves all extremities, no focal motor deficits and gait normal Sensorium/orientation: alert Speech: speech normal Other: No pronator drift Psych: Common normals: thought process normal Appearance: well kempt Attitude: engaged Activity/motor behavior: appropriate eye contact Thought process: normal thought process Insight: insight good Judgement: judgment good Skin: Common normals: no rashes or lesions noted General skin exam: no rashes or lesions noted Course Course ED Course: 68-year-old female with multiple cardiac and cerebrovascular risk factors presenting with a 10 minute episode of sensory change of the left upper extremity. Now resolved. Differential diagnosis including acute cardiac process with radiation into the left arm, TIA, cervical radiculopathy, peripheral nerve entrapment, unusual presentation of shingles, musculoskeletal etiology, among others. Due to her multiple risk factors, biggest concerns for cerebrovascular disease or cardiac process. Cannot reproduce the numbness on exam. Blood pressure is slightly elevated today. Will give aspirin [address], EKG, basic labs including troponins and BNP. May benefit from outpatient MRI/MRA or neurology consult to further clarify if workup is negative today. Reevaluation(s) Time of Reevaluation #1: 08:08 Reevaluation #1: Discussed initial findings with patient. Concern for underlying acute cardiac process, anginal equivalent. Initial troponin is negative. TIA workup is thankfully also benign the was thought less likely. Patient currently asymptomatic and having no EKG changes. Vital signs remained stable. Will start patient on metoprolol, 1st dose will be given in ED. If 2nd troponin is negative, will be discharged to schedule outpatient stress test and will be given nitroglycerin. Discussed alarm symptoms including anginal equivalents that would warrant ED presentation, use of nitroglycerin, etc.. She will continue on her statin and begin a full dose aspirin daily until otherwise directed by her primary care provider or director pharmacy services. She was counseled on smoking cessation. Incoming day shift doctor will discharge if 2nd troponin is negative. Vital Signs Vital signs: Initial Vital Signs Temperature 98.7 F 12/07/23 06:20 Temperature Source Temporal Artery Scan 12/07/23 06:20 Pulse Rate 94 12/07/23 06:20 Pulse Strength 3+ Normal 12/07/23 06:20 Respiratory Rate 20 12/07/23 06:20 Blood Pressure 151/89 H 12/07/23 06:20 Blood Pressure Mean 109 H 12/07/23 06:20 Pulse Oximetry 96 12/07/23 06:20 Oxygen Delivery Method Room Air 12/07/23 06:20 Vital Signs Temperature 98.7 F 12/07/23 06:20 Pulse Rate 94 12/07/23 06:20 Respiratory Rate 20 12/07/23 06:20 Blood Pressure 151/89 H 12/07/23 06:20 Pulse Oximetry 96 12/07/23 06:20 Oxygen Delivery Method Room Air 12/07/23 06:20 Temperature 98.7 F 12/07/23 06:20 Pulse Rate 94 12/07/23 06:20 Respiratory Rate 20 12/07/23 06:20 Blood Pressure 151/89 H 12/07/23 06:20 Pulse Oximetry 96 12/07/23 06:20 Oxygen Delivery Method Room Air 12/07/23 06:20 Medications Administered Medications: Discontinued Medications Generic Name Dose Route Start Last Admin Trade Name Freq PRN Reason Stop Dose Admin Aspirin 324 mg 12/07/23 06:46 12/07/23 07:00 Aspirin 81 Mg Tab.Chew PO 12/07/23 06:47 324 mg ONCE ONE Administration Metoprolol Succinate 25 mg 12/07/23 08:15 12/07/23 08:20 Metoprolol Succinate (Xl) 25 Mg Tab PO 12/07/23 08:16 25 mg ONCE ONE Administration Medical Decision Making Lab Data Lab results reviewed: Yes I reviewed the patient's lab results Lab results narrative: Initial labs reassuring. Repeat trop ending. Labs: Lab Results 12/07/23 12/07/23 12/07/23 Range/Units 06:44 06:50 08:15 WBC 11.27 H (4.50-11.00) K/uL RBC 4.64 (4.00-5.20) m/uL Hgb 14.3 (12.0-16.0) gm/dL Hct 42.7 (33.0-51.0) % MCV 92 (80-100) fL MCH 31 (26-34) pg MCHC 34 (32-36) gm/dL RDW Coeff of Camilo 12.9 (11.5-15.5) % Plt Count 324 (140-440) K/uL Neut % (Auto) 67.7 (42.0-72.0) % Lymph % (Auto) 22.7 (20-44) % [place] % (Auto) 7.2 (0.0-11.0) % Eos % (Auto) 1.8 (0.0-7.0) % Baso % (Auto) 0.4 (0.0-3.0) % Neut # (Auto) 7.60 H (1.7-7.0) K/uL Lymph # (Auto) 2.60 (0.90-2.90) K/uL [place] # (Auto) 0.80 (0.00-0.90) K/UL Eos # (Auto) 0.20 (0.00-0.50) K/uL Baso # (Auto) 0.00 (0.00-0.30) K/uL Abs Immat Gran (auto) 0.00 (0.00-0.30) K/uL Imm/Tot Granulo (auto) 0.2 % Sodium 137 (135-149) mmol/L Potassium 4.1 (3.6-5.1) mmol/L Chloride 102 (96-114) mmol/L Carbon Dioxide 28 (20-32) mmol/L Anion Gap 7 (7-15) mEq/L BUN 17 (7-30) mg/dL Creatinine 0.8 (0.5-1.5) mg/dL Estimated Creat Clear 49.80 Estimated GFR 81 ml/min Glucose 139 H (60-115) mg/dL Calcium 9.2 (8.4-10.6) mg/dL Troponin I < 0.01 L (0.01-0.04) ng/mL NT-Pro-B Natriuret Pep 83 pg/mL POC Troponin I 0.01 0.01 (0.01-0.04) ng/ml Imaging Data CT scan - head: Attestation: I have reviewed the pertinent imaging results. My impression: Normal head CT Radiologist's impression: IMPRESSION: Normal head CT. ECG Data Attestation: I personally reviewed and interpreted this ECG as follows: Prior ECG tracings: available for review (Comparison is rhythm strip from 09/19/2018 from stress echo) Interpretation: Normal sinus rhythm, rate is 87. Intervals and axis are normal. There is some slight septal changes but these are unchanged from 2019. Certainly no acute ischemic changes or changes in lateral leads noted. Discharge Plan Discharge Clinical Impression: Anginal equivalent Patient Disposition: Home, Self-Care Condition: Improved Instructions: Angina (DC), Stress Echocardiogram (DC) Additional Instructions: As we discussed, I think that the sweating and arm symptoms that you had today are related to problems in your heart. Women do not always have clear chest pain when they are having cardiac symptoms. I would like for you to start taking a full aspirin every day until you are directed to stop this by primary care or director pharmacy services. I prescribed a new heart medication, metoprolol. You will receive her 1st dose here in the emergency department and then I will send an additional supply to your local pharmacy. Take 1 tablet daily. I would recommend that you have a cardiac stress test scheduled soon. Please follow-up with your primary care provider as soon as possible to get this scheduled. Having your primary care doctor schedule it ensures that someone reliable gets the results and can deal with them in a timely fashion if needed. You will continue taking your existing blood pressure medications. I would like you out of work until after this stress test can be performed. I am also giving you a supply of nitroglycerin, this is a medication that can be used to stop chest pain or the symptoms that we are suspecting are related to your heart. Light activity only for you currently, no heavy exercise. If you get the heavy sweats, arm tingling or more classic chest pain, take the nitroglycerin. If your symptoms do completely go away quickly, you can wait for the stress test but if they do not, you should come back to the emergency room. Make sure that you continue taking your cholesterol medicine a tore the statin also. I love that you are having some motivation to quit smoking and I would encourage this in any way possible. Do not take the metoprolol the morning of your stress test. The karate instructor will give you any additional instructions that will be needed. Activity Level: No strenuous activity Discharge Diet: Diabetic Prescriptions: New metoprolol succinate 25 mg tablet extended release 24 hr 25 mg PO DAILY Qty: 90 0RF nitroglycerin 0.4 mg tablet, sublingual 0.4 mg sublingual Q5-15M PRN (Reason: chest pain) Qty: 10 1RF Rx Instructions: do not exceed 3 doses per episode No Action ergocalciferol (vitamin D2) 10 mcg (400 unit) tablet 400 unit PO DAILY (DME) Diabetic Test Strips Misc See Rx Instructions .Route Rx Instructions: As directed (DME) lancets [Fingerstix Lancets] Misc See Rx Instructions .Route Rx Instructions: As directed (DME) incontinence pad, liner, disp Pad See Rx Instructions .Route Qty: 100 11RF Rx Instructions: As directed albuterol sulfate 90 mcg/actuation HFA aerosol inhaler 2 puff inhalation Q4H PRN (Reason: asthma) Qty: 8.5 1RF amlodipine 5 mg tablet 5 mg PO QDAY Qty: 90 3RF atorvastatin 20 mg tablet 20 mg PO QHS Qty: 90 3RF epinephrine 0.3 mg/0.3 mL auto-injector 0.3 ml IM .As Needed as needed PRN (Reason: anaphylaxis) Qty: 2 0RF hydrochlorothiazide 25 mg tablet See Rx Instructions .ROUTE .COMPLEX Qty: 90 3RF Dose Instruction: TAKE ONE TABLET BY MOUTH ONCE DAILY Rx Instructions: TAKE ONE TABLET BY MOUTH ONCE DAILY lisinopril 20 mg tablet 20 mg PO QDAY Qty: 90 3RF metformin 500 mg tablet See Rx Instructions .ROUTE .COMPLEX Qty: 180 3RF Dose Instruction: TAKE ONE TABLET BY MOUTH TWICE DAILY Rx Instructions: TAKE ONE TABLET BY MOUTH TWICE DAILY omeprazole 20 mg capsule,delayed release(DR/EC) See Rx Instructions .ROUTE .COMPLEX Qty: 90 3RF Dose Instruction: TAKE ONE CAPSULE BY MOUTH EVERY DAY Rx Instructions: TAKE ONE CAPSULE BY MOUTH EVERY DAY aspirin [Adult Low Dose Aspirin] 81 mg tablet,delayed release (DR/EC) 81 mg PO DAILY Follow Up/Referrals: Liam Epstein MD [Primary Care Provider] - 2 Days (to Schedule stress test) Stand Alone Forms: [employer] Info Instructions
[2023-12-07] MEDS: ASPIRIN 81 MG TAB.CHEW 324 MG PO (07:00)
[2023-12-07 07:05] LABS: Troponin, Point-of-Care* 0.01 ng/ml (0.01-0.04)
[2023-12-07 07:15] LABS: Basophils Percent Auto 0.4 % (0.0-3.0); Eosinophils Percent Auto 1.8 % (0.0-7.0); Hematocrit 42.7 % (33.0-51.0); Hemoglobin* 14.3 gm/dL (12.0-16.0); Immature Granulocytes Pct Auto 0.2 %; Lymphocytes Percent Auto 22.7 % (20-44); Mean Corpuscular HGB Conc 34 gm/dL (32-36); Mean Corpuscular Hemoglobin 31 pg (26-34); Mean Corpuscular Volume 92 fL (80-100); Monocytes Percent Auto 7.2 % (0.0-11.0); Neutrophils Percent Auto 67.7 % (42.0-72.0); Platelet Count* 324 K/uL (140-440); RDW Coefficient of Variation % 12.9 % (11.5-15.5); Red Blood Count 4.64 m/uL (4.00-5.20); White Blood Count* 11.27 K/uL (4.50-11.00)
[2023-12-07 07:18] LABS: Slide Review Reflex No
[2023-12-07 07:25] LABS: Chloride* 102 mmol/L (96-114); Potassium* 4.1 mmol/L (3.6-5.1); Sodium* 137 mmol/L (135-149)
[2023-12-07 07:27] LABS: Creatinine* 0.8 mg/dL (0.5-1.5); Estimated Glomerular Filt Rate 81 ml/min
[2023-12-07 07:28] LABS: Anion Gap 7 mEq/L (7-15); Blood Urea Nitrogen* 17 mg/dL (7-30); Calcium* 9.2 mg/dL (8.4-10.6); Carbon Dioxide* 28 mmol/L (20-32); Glucose* 139 mg/dL (60-115)
--- OUTSIDE RECORDS SUMMARY | 2023-12-07 07:32 | XMS_ITS | Clinical Summary ---
Author Name Unknown Organization [facility] Address [place], [place] [address] Care Team Providers Care Pearl Diver Name Role Phone Magnus Snider MD Unavailable [...] MIXED 07/29/2004 012 ELEVATED BLOOD PRESSURE 07/29/2004 0311/2008 Immunizations Name Administration Dates Next Due Influenza, [...] 1 2 Date Outcome GA Total Labor Labor/2nd/3rd Weight Sex Delivery Anes PTL Hanh A1 [...] Health Maintenance Due Date Last Done Comments Zoster (shingles) series for age 50+ (1 [...] 09/06/2022 09/06/2017, 06/03/2016, 01/08/2015, Additional history exists COVID-19 vaccine series (1 - 2022-24 season) 2023 Colonoscopy through age 75 07/14/202307/14, 11/30/2017, 11/30/2017, Additional history exists Influenza for age 65+ 04/29/2024 10/10/2017 , 07/13/2016, 05/16/2013, Additional history exists Tdap Completed 08/15/2010 Hepatitis C screening for ag e 18-79 Completed 10/06/2011 Procedures Procedure Name Priority Date/Time Associated Diagnosis Comments SCAN-COLONOSCOPY 07/14/2018 12:0 0 AM THREAD CUTTER XR MAMMO BILAT SCREENING Routine 01/03/2018 11:25 AM CDT Visit for screening mammogram LIPID PANEL W REFLEX MEASURED LDL Routine 09/06/2017 8:52 AM THREAD CUTTER Controlled type 2 diabetes mellitus without complication, without long-term current use of insulin (HC) ANTI HCV Routine 10/06/2011 9:51 AM THREAD CUTTER Exposure to hepatitis C from Last 3 Months or Most Recently Relevant to Health Maintenance Results * SCAN-COLONOSCOPY (07/14/2018 12:00 AM THREAD CUTTER) Scanner OTHER * XR MAMMO BILAT SCREENING (01/03/2018 11:25 AM CDT) Anatomical Region Laterality Modality BREASTS, Breast Left, Breast Right Bilateral Mammography Impressions 01/04/2018 12:26 PM CDT ??There is no radiographic evidence for malignancy. ??Recommend annual mammograms. A lay language report of this examination will be provided to the patient. MAMMOGRAM ASSESSMENT: ??ACR 2 Benign Narrative 01/04/2018 12:26 PM CDT XR MAMMO BILAT SCREENING [[id number]] CLINICAL HISTORY: ??This is an asymptomatic 62 y.o. patient. INDICATION FOR EXAM: Mammogram Screening. TECHNIQUE: CC & MLO views were obtained. ??This digital study was evaluated with the assistance of Computer-Aided Detection. COMPARISON FILMS: Yes 06/01/16 [facility] 01/08/15 [facility] FINDINGS: ??Mammographically, the breast tissue has scattered fibroglandular densities. ??No suspicious masses or microcalcifications. ?? Benign appearing calcifications within both breasts. Ney Willson MD MAMMO * (ABNORMAL) LIPID PANEL W REFLEX MEASURED LDL (09/06/2017 8:52 AM THREAD CUTTER) CHOLESTEROL,TOTAL 217(H) 100 - 199 mg/dL 09/06/2017 1:22 PM THREAD CUTTER [facility] TRIGLYCERIDES 232(H) <150 mg/dL 09/06/2017 1:22 PM THREAD CUTTER [facility] HDL CHOLESTEROL 44 >40 mg/dL 8 1:22 PM THREAD CUTTER [facility] NON-HDL CHOLESTEROL 173(H) <145 mg/dl 09/06/2017 1:22 PM THREAD CUTTER [facility] CHOL/HDL RATIO 4.93(H) <4.50 09/06/2017 1:22 PM THREAD CUTTER [facility] LDL CHOLESTEROL 127 <=130 mg/dL 09/06/2017 1:22 PM THREAD CUTTER [facility] PROVIDER ORDERED STATUS RANDOM 09/06/2017 1:22 PM THREAD CUTTER [facility] Blood BLOOD SPECIMEN / Unknown Venipuncture / Unknown 09/06/2017 8:52 AM THREAD CUTTER 09/06/2017 8:52 AM THREAD CUTTER Ney Willson MD CHEMISTRY [facility] [address] [place] [address], [place] * ANTI HCV (10/06/2011 9:51 AM THREAD CUTTER) ANTI HCV Non-reacti ve [facility] Blood specimen (specimen) BLOOD SPECIMEN / Unknown 10/06/2011 9:51 AM THREAD CUTTER 10/06/2011 9:44 AM THREAD CUTTER Carl Galeas MD SEND OUTS [facility] INTERNAL ZIP [address] [place] [id number] from Last 3 Months or Most Recently Relevant to Health Maintenance Care Teams Pearl Diver Relationship Specialty Start Date End Date Ney Willson MD [address] [place] [address] PCP - General Family Practice 10/18/13 Magnus Snider MD Gynecology Obstetrics and Gynecology 10/06/11
[2023-12-07 07:46] LABS: NT Pro B Type NatriureticPept* 83 pg/mL; Troponin I* < 0.01 ng/mL (0.01-0.04)
[2023-12-07] MEDS: METOPROLOL SUCCINATE (XL) 25 MG TAB PO (08:20)
[2023-12-07 08:35] LABS: Troponin, Point-of-Care* 0.01 ng/ml (0.01-0.04)
== END 2023-12-07 08:46 | disposition home or self-care (01) ==
PROVIDERS: Emergency Provider Family Medicine; PCP Family Medicine
DX: I20.89 Other forms of angina pectoris (principal)
CPT/HCPCS: 36415; 70450; 80048; 83880; 84484; 85025; 93005; 99285; A9270

== ENCOUNTER 2023-12-13 14:55 | Outpatient (CLI) | payer MEDICARE, BC, SELFPAY ==
--- OUTSIDE RECORDS SUMMARY | 2023-12-13 14:57 | XMS_ITS | Clinical Summary ---
Author Name Unknown Organization [employer] [facility] [employer] Address [place], [place] [address] Care Team Providers Care Stack Attendant Name Role Phone Magnus Snider MD Unavailable [...] 01/03/2018 10:40 AM CDT Plan of Treatment Upcoming Encounters Date Type Department Care Team (Late st Contact Info) Description 12/13/2023 3:00 PM CDT Orders Only [facility] [address] [place] [address] Health Maintenance Due Date Last Done Comments [...] 01/08/2015, Additional history exists COVID-19 vaccine series (2022- season) 2023 Colonoscopy through age 75 07/14/202307/14, 11/30/2017, 11/30/2017, Additional history exists Influenza for age 65+ 04/29/2024 10/10/2017 , 07/13/2016, 05/16/2013, Additional history exists Tdap Completed 08/15/2010 Hepatitis C screening for ag e 18-79 Completed 10/06/2011 Procedures Procedure Name Priority Date/Time Associated Diagnosis Comments SCAN-COLONOSCOPY 07/14/2018 12:0 0 AM LINING PRINTER XR MAMMO BILAT SCREENING Routine 01/03/2018 11:25 AM CDT Visit for screening mammogram LIPID PANEL W REFLEX MEASURED LDL Routine 09/06/2017 8:52 AM LINING PRINTER Controlled type 2 diabetes mellitus without complication, without long-term current use of insulin (HC) ANTI HCV Routine 10/06/2011 9:51 AM LINING PRINTER Exposure to hepatitis C from Last 3 Months or Most Recently Relevant to Health Maintenance Results * SCAN-COLONOSCOPY (07/14/2018 12:00 AM LINING PRINTER) Scanner OTHER * XR MAMMO BILAT SCREENING [...] 12:26 PM CDT XR MAMMO BILAT SCREENING [[id number]] CLINICAL HISTORY: ??This is an asymptomatic 62 y.o. patient. INDICATION FOR EXAM: Mammogram Screening. TECHNIQUE: CC & MLO views were obtained. ??This digital study was evaluated with the assistance of Computer-Aided Detection. COMPARISON FILMS: Yes 06/01/16 [facility] 01/08/15 [facility] FINDINGS: ??Mammographically, the breast tissue has scattered fibroglandular densities. ??No suspicious masses or microcalcifications. ?? Benign appearing calcifications within both breasts. Ney Willson MD MAMMO * (ABNORMAL) LIPID PANEL W REFLEX MEASURED LDL (09/06/2017 8:52 AM LINING PRINTER) CHOLESTEROL,TOTAL 217(H) 100 - 199 mg/dL 09/06/2017 1:22 PM LINING PRINTER [facility] TRIGLYCERIDES 232(H) <150 mg/dL 09/06/2017 1:22 PM [facility] HDL CHOLESTEROL 44 >40 mg/dL 8 1:22 PM LINING PRINTER [facility] NON-HDL CHOLESTEROL 173(H) <145 mg/dl 09/06/2017 1:22 PM [facility] CHOL/HDL RATIO 4.93(H) <4.50 09/06/2017 1:22 PM [facility] LDL CHOLESTEROL 127 <=130 mg/dL 09/06/2017 1:22 PM [facility] PROVIDER ORDERED STATUS RANDOM 09/06/2017 1:22 PM [facility] Blood BLOOD SPECIMEN / Unknown Venipuncture / Unknown 09/06/2017 8:52 AM LINING PRINTER 09/06/2017 8:52 AM LINING PRINTER Ney Willson MD CHEMISTRY [facility] [address] [place] [address], * ANTI HCV (10/06/2011 9:51 AM LINING PRINTER) ANTI HCV Non-reacti ve [facility] Blood specimen (specimen) BLOOD SPECIMEN / Unknown 10/06/2011 9:51 AM LINING PRINTER 10/06/2011 9:44 AM LINING PRINTER Carl Galeas MD SEND OUTS [facility] INTERNAL ZIP [address] [address] from Last 3 Months or Most Recently Relevant to Health Maintenance Care Teams Stack Attendant Relationship Specialty Start Date End Date Ney Willson MD [address] [place] [address] PCP - General Family Practice 10/18/13 Magnus Snider MD Gynecology Obstetrics and Gynecology 10/06/11
[2023-12-13] MEDS: PERFLUTREN LIPID MICROSPHERES 2 ML VIAL IV (15:49)
--- NOTE | 2023-12-13 15:59 | W.PM.STED ---
Stress Test Note Date Date of test: 12/13/23 Providers Primary care provider: Liam Epstein Stress test physician: Adrian Costello Stress Test Note Stress test ordered: Stress Echo Indication for test: Dyspnea on exertion Stress test medicine: Definity Results discussion: Pleasant lady presents for the above test after discussion the risks benefits and side effects she would like to proceed pretest cardiac stress test medical history form is reviewed. Pretest EKG shows normal sinus rhythm with a heart rate of 129 blood pressure 161/[address] wave changes are noted. Using standard Ronald protocol patient was exercised for a total time of 5 minutes 36 seconds achieved a metabolic equivalent of 7.1 Mets, maximum heart rate was 168, which is 128% of the maximum her maximum blood pressure was 228/106. Test is terminated because of shortness of breath fatigue, during this test there is no appreciable ST wave changes suggestive ischemia there is no dysrhythmias, and she recovered normally. Conditioning was felt to be moderate Impression: Negative electrographic portion of stress echo, Follow up suggested: Await echo images these will be read by Cardiology, clinical correlation with these will be needed, patient recovered well and will be discharged from this facility.
[2023-12-13 16:04] VITALS: BP 158/80; PULSE 122; RESP 18
== END 2023-12-13 14:56 | disposition home or self-care (01) ==
LOC: STRESS 14:56
PROVIDERS: PCP Family Medicine; Visit Provider Family Medicine
DX: R06.09 Other forms of dyspnea (principal); F17.200 Nicotine dependence, unspecified, uncomplicated; I10 Essential (primary) hypertension; E11.9 Type 2 diabetes mellitus without complications
CPT/HCPCS: 93016; 93325; 93351; Q9957

== ENCOUNTER 2024-07-09 23:55 | Emergency (ER) | payer MEDICARE, BC, SELFPAY ==
[2024-07-10 00:03] VITALS: BP 189/101; PULSE 89; RESP 16; TEMP 36.6; O2SAT 97; BMI 30.7
--- NOTE | 2024-07-10 00:11 | ED_ITS ---
HPI - General Adult General Chief complaint: Headache/Migraine Stated complaint: headache Time Seen by Provider: 07/10/24 00:10 History of Present Illness HPI narrative: took nap on couch, woke up at 1700 with headache. states this feels like it is coming from the neck. hx cluster headaches but states it isnt like those. took 2 doses of naproxen since 1800 69-year-old woman presenting to the emergency department with concern of headache. Fell asleep on the couch would which would be atypical. She woke having pain in the left low neck seems to be radiating into as gestured left trapezius. Does note a history of headaches particularly cluster headaches and this isn't that. She did take some naproxen without relief. Having trouble finding a comfortable spot. No visual disturbances. No fever. No trauma otherwise. She is sober and would want to be cautious with treatment. Related Data Home Medications ?Medication ?Instructions ?Recorded ?Confirmed aspirin 81 mg tablet,delayed 81 mg PO DAILY 05/24/22 07/12/24 release (Adult Low Dose Aspirin) Diabetic Test Strips 06/23/22 07/12/24 ergocalciferol (vitamin D2) 10 mcg 400 unit PO DAILY 06/23/22 07/12/24 (400 unit) tablet lancets (Fingerstix Lancets) 06/23/22 07/12/24 Previous Rx's ?Medication ?Instructions ?Recorded incontinence pad, liner, disp #100 ea 06/23/22 albuterol sulfate 90 mcg/actuation 2 puff inhalation Q4H PRN asthma 07/18/23 aerosol inhaler #8.5 grams amlodipine 5 mg tablet 5 mg PO QDAY #90 tabs 07/18/23 atorvastatin 20 mg tablet 20 mg PO QHS #90 tabs 07/18/23 epinephrine 0.3 mg/0.3 mL 0.3 ml IM .As Needed as needed PRN 07/18/23 injection, auto-injector anaphylaxis #2 ea hydrochlorothiazide 25 mg tablet See Rx Instructions .Route 07/18/23 .COMPLEX #90 tabs lisinopril 20 mg tablet 20 mg PO QDAY #90 tabs 07/18/23 metformin 500 mg tablet See Rx Instructions .Route 07/18/23 .COMPLEX #180 tabs omeprazole 20 mg capsule,delayed See Rx Instructions .Route 07/18/23 release .COMPLEX #90 caps nitroglycerin 0.4 mg sublingual 0.4 mg sublingual Q5-15M PRN chest 12/07/23 tablet pain #10 tabs Allergies Allergy/AdvReac Type Severity Reaction Status Date / Time bee venom protein (honey bee) Allergy Intermediate Difficulty Verified 07/12/24 14:21 Breathing bupropion Allergy Mild Rash Verified 07/12/24 14:21 Sulfa (Sulfonamide Allergy Mild Rash Verified 07/12/24 14:21 Antibiotics) house dust Allergy Verified 07/12/24 14:21 perfume Allergy Verified 07/12/24 14:21 pollen extracts Allergy Verified 07/12/24 14:21 latex AdvReac Intermediate Rash Verified 07/12/24 14:21 Review of Systems Status of ROS: Reports: 6 or more systems reviewed and unremarkable except as noted in History and below [facility] Medical History Tobacco use ?Z72.0 - Tobacco use (ICD-10) History of vitamin D deficiency (2013) ?Z86.39 - Personal history of other endocrine, nutritional and metabolic disease (ICD-10) History of histoplasmosis ?Z86.19 - Personal history of other infectious and parasitic diseases (ICD- 10) History of colonic polyps (10/28/11) ?Z86.010 - Personal history of colonic polyps (ICD-10) Surgical History H/O excision of ganglion cyst (09/08/22) ?Z98.890 - Other specified postprocedural states (ICD-10) S/P appendectomy ?Z90.49 - Acquired absence of other specified parts of digestive tract (ICD- 10) Status post laparoscopic-assisted sigmoidectomy (12/01/17) ?Z90.49 - Acquired absence of other specified parts of digestive tract (ICD- 10) History of tubal ligation ?Z98.51 - Tubal ligation status (ICD-10) History of laparoscopic cholecystectomy (11/07/18) ?Z90.49 - Acquired absence of other specified parts of digestive tract (ICD- 10) History of colonoscopy with polypectomy (11/30/17) ?Z98.890 - Other specified postprocedural states (ICD-10) ?Z86.010 - Personal history of colonic polyps (ICD-10) History of section (1985) ?Z98.891 - History of uterine scar from previous surgery (ICD-10) Social History Narrative: Patient is retired. Smoking Status: Current every day smoker How often do you have a drink containing alcohol: monthly or less How often do you have six or more drinks on one occasion: Never AUDIT-C Alcohol total score: 1 Non-prescribed substance use: denies use Exam Narrative: Exam Narrative: Pleasant. Semi recumbent leaning to her left upon evaluation. She is sore surrounding the left occipital nerve foramen. Sore through the trapezius than as well. Lipoma at left upper trapezius. Point of soreness seems to be around the occipital foramen on the left. Cranial nerves 2-12 are intact. Pupils are brisk and equal. She is not lack remitting nor is there any drainage from her eyes. Neck is actually supple. She has good range of motion though I think soreness is elicited further with rotation to the left. Moving all extremities without difficulty with good strength. Head is atraumatic. Const: Vital Signs, click to edit/add: Vital Signs - 24 hr 07/10/24 00:03 Temperature 97.9 F Pulse Rate [Pulse Oximeter] 89 Respiratory Rate 16 Blood Pressure [Ri ght Upper Arm] 189/101 H Pulse Oximetry 97 Oxygen Delivery Me thod Room Air Documenting provider has reviewed patient's vital signs: yes Course Vital Signs Vital signs: Initial Vital Signs Temperature 97.9 F 07/10/24 00:03 Temperature Source Temporal Artery Scan 07/10/24 00:03 Pulse Rate 89 07/10/24 00:03 Respiratory Rate 16 07/10/24 00:03 Blood Pressure 189/101 H 07/10/24 00:03 Blood Pressure Mean 130 H 07/10/24 00:03 Blood Pressure Position Sitting 07/10/24 00:03 Pulse Oximetry 97 07/10/24 00:03 Oxygen Delivery Method Room Air 07/10/24 00:03 Vital Signs Temperature 97.9 F 07/10/24 00:03 Pulse Rate 89 07/10/24 00:03 Respiratory Rate 16 07/10/24 00:03 Blood Pressure 189/101 H 07/10/24 00:03 Pulse Oximetry 97 11/12/24 00:03 Oxygen Delivery Method Room Air 07/10/24 00:03 Temperature 97.9 F 07/10/24 00:03 Pulse Rate 89 07/10/24 00:03 Respiratory Rate 16 07/10/24 00:03 Blood Pressure 149/88 H 07/10/24 01:45 Pulse Oximetry 97 07/10/24 00:03 Oxygen Delivery Method Room Air 07/10/24 00:03 Medications Administered Medications: Discontinued Medications Generic Name Dose Route Start Last Admin Trade Name Farooq PRN Reason Stop Dose Admin Bupivacaine HCl 5 ml 07/10/24 01:33 07/10/24 01:34 Bupivacaine 0.25% 30 Ml INJECTION 07/10/24 01:34 5 ml ONCE ONE Administration Medical Decision Making MDM Narrative Medical decision making narrative: Discussed etiology of headache. She may have strained her neck somewhat. Does appear to have pain though surrounding this occipital nerve exit area and perhaps anesthetic injection in this area might be helpful. Did discuss more generalized treatment for headache and pending improvement further evaluation. Does not have red flag symptoms for me for meningitis or head bleed. She would like to proceed with localized injection and reassessment. Risks and benefits were discussed. I return to cleanse the left occipital for a min area with alcohol and injected total of 2 mL fanned in o'clock in this area. On reassessment is feeling notably improved. She would like to go home and try to rest. See patient discharge plan for further discussion Medical Records Medical records reviewed: Yes I reviewed the patient's medical records Discharge Plan Discharge Clinical Impression: Cervicalgia, Occipital headache Patient Disposition: Home, Self-Care Condition: Improved Additional Instructions: Another option for ice packs are those ice bags with the screw top lids. I like the [employer] brand; I believe [employer] carries them. Fill with ice and water. Gentle stretching of your neck over the next few days as discussed. See also this handout on stretches for the upper back. Yes, a visit with a chiropractor or osteopathic doctor or physical therapy might be beneficial. In addition, course of prednisone from [facility]. Prescriptions: No Action ergocalciferol (vitamin D2) 10 mcg (400 unit) tablet 400 unit PO DAILY (DME) Diabetic Test Strips Misc See Rx Instructions .Route Rx Instructions: As directed (DME) lancets [Fingerstix Lancets] Misc See Rx Instructions .Route Rx Instructions: As directed (DME) incontinence pad, liner, disp Pad See Rx Instructions .Route Qty: 100 11RF Rx Instructions: As directed albuterol sulfate 90 mcg/actuation HFA aerosol inhaler 2 puff inhalation Q4H PRN (Reason: asthma) Qty: 8.5 1RF amlodipine 5 mg tablet 5 mg PO QDAY Qty: 90 3RF atorvastatin 20 mg tablet 20 mg PO QHS Qty: 90 3RF epinephrine 0.3 mg/0.3 mL auto-injector 0.3 ml IM .As Needed as needed PRN (Reason: anaphylaxis) Qty: 2 0RF hydrochlorothiazide 25 mg tablet See Rx Instructions .ROUTE .COMPLEX Qty: 90 3RF Dose Instruction: TAKE ONE TABLET BY MOUTH ONCE DAILY Rx Instructions: TAKE ONE TABLET BY MOUTH ONCE DAILY lisinopril 20 mg tablet 20 mg PO QDAY Qty: 90 3RF metformin 500 mg tablet See Rx Instructions .ROUTE .COMPLEX Qty: 180 3RF Dose Instruction: TAKE ONE TABLET BY MOUTH TWICE DAILY Rx Instructions: TAKE ONE TABLET BY MOUTH TWICE DAILY omeprazole 20 mg capsule,delayed release(DR/EC) See Rx Instructions .ROUTE .COMPLEX Qty: 90 3RF Dose Instruction: TAKE ONE CAPSULE BY MOUTH EVERY DAY Rx Instructions: TAKE ONE CAPSULE BY MOUTH EVERY DAY aspirin [Adult Low Dose Aspirin] 81 mg tablet,delayed release (DR/EC) 81 mg PO DAILY nitroglycerin 0.4 mg tablet, sublingual 0.4 mg sublingual Q5-15M PRN (Reason: chest pain) Qty: 10 1RF Rx Instructions: do not exceed 3 doses per episode Follow Up/Referrals: Liam Epstein MD [Primary Care Provider] - Stand Alone Forms: [employer] Info Instructions
--- OUTSIDE RECORDS SUMMARY | 2024-07-10 00:41 | XMS_ITS | Clinical Summary ---
Author Organization [employer] [facility] [employer] [facility] Address [place], [place] [address] Care Team Providers Care Supervisor Payroll Name Role Phone Magnus Snider MD Unavailable [...] 10/17/2012 Personal history of colonic polyps 10/28/2011 Overview (10/28/2011): Colonoscopy 09/2011 polyp repeat in 5 years Mixed hyperlipidemia 08/24/2010 Impaired fasting glucose 11/08/2008 Bipolar Disorder, Unspecified 10/30/2008 HTN (hypertension) 10/30/2008 Overview (11/11/2009): Updated by system to replace inactive record TOBACCO ABUSE 07/29/2004 ASTHMA, INTERMITTENT, MILD 07/29/2004 Resolved Problems Problem Noted Date Diagnosed Date Resolved Date INCONTINENCE - MIXED 07/29/2004 012 ELEVATED BLOOD PRESSURE 07/29/2004 03/0 11/2008 Immunizations Name Administration Dates Next Due Influenza, [...] Outcome GA Total Labor Labor/2nd/3rd Weight Sex Type Anes PTL Hanh A1 A5 Name Clin Para Para SAB Last Filed Vital Signs [...] 77 07/14/202307/14, 11/30/2017, 11/30/2017, Additional history exists COVID-19 vaccine series (2023- season) 2024 Influenza for age 65+ 04/29/2024 10/10/2017 , 07/13/2016, 05/16/2013, Additional history exists Tdap Completed 08/15/2010 Hepatitis C screening for ag e 18-79 Completed 10/06/2011 Procedures Procedure Name Priority Date/Time Associated Diagnosis Comments SCAN-COLONOSCOPY 07/14/2018 12:0 0 AM BANQUET COORDINATOR XR MAMMO BILAT SCREENING Routine 01/03/2018 11:25 AM CDT Visit for screening mammogram LIPID PANEL W REFLEX MEASURED LDL Routine 09/06/2017 8:52 AM BANQUET COORDINATOR Controlled type 2 diabetes mellitus without complication, without long-term current use of insulin (HC) ANTI HCV Routine 10/06/2011 9:51 AM BANQUET COORDINATOR Exposure to hepatitis C from Last 3 Months or Most Recently Relevant to Health Maintenance Results * SCAN-COLONOSCOPY (07/14/2018 12:00 AM BANQUET COORDINATOR) Scanner OTHER * XR MAMMO BILAT SCREENING [...] 12:26 PM CDT XR MAMMO BILAT SCREENING [[id number]] CLINICAL HISTORY: ??This is an asymptomatic 62 y.o. patient. INDICATION FOR EXAM: Mammogram Screening. TECHNIQUE: CC & MLO views were obtained. ??This digital study was evaluated with the assistance of Computer-Aided Detection. COMPARISON FILMS: Yes 06/01/16 [facility] 01/08/15 [facility] FINDINGS: ??Mammographically, the breast tissue has scattered fibroglandular densities. ??No suspicious masses or microcalcifications. ?? Benign appearing calcifications within both breasts. Ney Willson MD MAMMO * (ABNORMAL) LIPID PANEL W REFLEX MEASURED LDL (09/06/2017 8:52 AM BANQUET COORDINATOR) CHOLESTEROL,TOTAL 217(H) 100 - 199 mg/dL 09/06/2017 1:22 PM [facility] TRIGLYCERIDES 232(H) <150 mg/dL 09/06/2017 1:22 PM BANQUET COORDINATOR [facility] HDL CHOLESTEROL 44 >40 mg/dL 8 1:22 PM [facility] NON-HDL CHOLESTEROL 173(H) <145 mg/dl 09/06/2017 1:22 PM BANQUET COORDINATOR [facility] CHOL/HDL RATIO 4.93(H) <4.50 09/06/2017 1:22 PM BANQUET COORDINATOR [facility] LDL CHOLESTEROL 127 <=130 mg/dL 09/06/2017 1:22 PM BANQUET COORDINATOR [facility] PROVIDER ORDERED STATUS RANDOM 09/06/2017 1:22 PM [facility] Blood BLOOD SPECIMEN / Unknown Venipuncture / Unknown 09/06/2017 8:52 AM BANQUET COORDINATOR 09/06/2017 8:52 AM BANQUET COORDINATOR Ney Willson MD [facility] [address] [place] [address], * ANTI HCV (10/06/2011 9:51 AM BANQUET COORDINATOR) ANTI HCV Non-reacti ve [facility] Blood specimen (specimen) BLOOD SPECIMEN / Unknown 10/06/2011 9:51 AM BANQUET COORDINATOR 10/06/2011 9:44 AM BANQUET COORDINATOR Carl Galeas MD SEND OUTS [facility] INTERNAL ZIP [address] [place] [address] from Last 3 Months or Most Recently Relevant to Health Maintenance Care Teams Supervisor Payroll Relationship Specialty Start Date End Date Ney Willson MD [address] [place] [address] PCP - General Family Practice 10/18/13 Magnus Snider MD Gynecology Obstetrics and Gynecology 10/06/11
[2024-07-10] MEDS: BUPIVACAINE 0.25% 30 ML 5 ML INJECTION (01:34)
[2024-07-10 01:45] VITALS: BP 149/88
--- NOTE | 2024-07-10 14:01 | ED.NURSE ---
Entered patient's chart to verify prednisone dose for [facility].
== END 2024-07-10 01:56 | disposition home or self-care (01) ==
PROVIDERS: Emergency Provider Family Medicine; PCP Family Medicine
DX: R51.9 Headache, unspecified (principal); M54.2 Cervicalgia
CPT/HCPCS: 64405; 99283; 99284; J0665

== ENCOUNTER 2024-07-31 08:10 | Outpatient (CLI) | payer MEDICARE, BC, SELFPAY ==
--- OUTSIDE RECORDS SUMMARY | 2024-08-03 04:20 | XMS_ITS | Clinical Summary ---
Author Organization [employer] [facility] [employer] [facility] Address [place], [place] [address] Care Team Providers Care Equity Holder Name Role Phone Magnus Snider MD Unavailable [...] 84 01/08/2019 9:44 AM CDT Temperature 36.6 C (97.9 F) 01/08/2019 9:44 AM CDT Respiratory Rate 16 [...] Diagnosis Comments SCAN-COLONOSCOPY 07/14/2018 12:0 0 AM GRATED CHEESE MAKER XR MAMMO BILAT SCREENING Routine 01/03/2018 11:25 AM CDT Visit for screening mammogram LIPID PANEL W REFLEX MEASURED LDL Routine 09/06/2017 8:52 AM GRATED CHEESE MAKER Controlled type 2 diabetes mellitus without complication, without long-term current use of insulin (HC) ANTI HCV Routine 10/06/2011 9:51 AM GRATED CHEESE MAKER Exposure to hepatitis C from Last 3 Months or Most Recently Relevant to Health Maintenance Results * SCAN-COLONOSCOPY (07/14/2018 12:00 AM GRATED CHEESE MAKER) Scanner OTHER * XR MAMMO BILAT SCREENING (01/03/2018 11:25 AM CDT) Anatomical Region Laterality Modality BREASTS, Breast Left, Breast Right Bilateral Mammography Impressions 01/04/2018 12:26 PM CDT There is no radiographic evidence for malignancy. Recommend annual mammograms. A lay language report of this examination will be provided to the patient. MAMMOGRAM ASSESSMENT: ACR 2 Benign Narrative 01/04/2018 12:26 PM CDT XR MAMMO BILAT SCREENING [[id number]] CLINICAL HISTORY: This is an asymptomatic 62 y.o. patient. INDICATION FOR EXAM: Mammogram Screening. TECHNIQUE: CC & MLO views were obtained. This digital study was evaluated with the assistance of Computer-Aided Detection. COMPARISON FILMS: Yes 06/01/16 [facility] 01/08/15 [facility] FINDINGS: Mammographically, the breast tissue has scattered fibroglandular densities. No suspicious masses or microcalcifications. Benign appearing calcifications within both breasts. Ney Willson MD MAMMO * (ABNORMAL) LIPID PANEL W REFLEX MEASURED LDL (09/06/2017 8:52 AM GRATED CHEESE MAKER) CHOLESTEROL,TOTAL 217(H) 100 - 199 mg/dL 09/06/2017 1:22 PM [facility] TRIGLYCERIDES 232(H) <150 mg/dL 09/06/2017 1:22 PM [facility] HDL CHOLESTEROL 44 >40 mg/dL 8 1:22 PM GRATED CHEESE MAKER [facility] NON-HDL CHOLESTEROL 173(H) <145 mg/dl 09/06/2017 1:22 PM GRATED CHEESE MAKER [facility] CHOL/HDL RATIO 4.93(H) <4.50 09/06/2017 1:22 PM [facility] LDL CHOLESTEROL 127 <=130 mg/dL 09/06/2017 1:22 PM GRATED CHEESE MAKER [facility] PROVIDER ORDERED STATUS RANDOM 09/06/2017 1:22 PM [facility] Blood BLOOD SPECIMEN / Unknown Venipuncture / Unknown 09/06/2017 8:52 AM GRATED CHEESE MAKER 09/06/2017 8:52 AM GRATED CHEESE MAKER Ney Willson MD [facility] [address] [place] [address], [place] * ANTI HCV (10/06/2011 9:51 AM GRATED CHEESE MAKER) ANTI HCV Non-reacti ve [facility] Blood specimen (specimen) BLOOD SPECIMEN / Unknown 10/06/2011 9:51 AM GRATED CHEESE MAKER 10/06/2011 9:44 AM GRATED CHEESE MAKER Carl Galeas MD SEND OUTS [facility] INTERNAL ZIP [phone] [address] from Last 3 Months or Most Recently Relevant to Health Maintenance Care Teams Equity Holder Relationship Specialty Start Date End Date Ney Willson MD [address] [place] [address] PCP - General Family Practice 10/18/13 Magnus Snider MD Gynecology Obstetrics and Gynecology 10/06/11
== END 2024-07-31 08:11 | disposition home or self-care (01) ==
LOC: NFLDREF 08-03 04:19
PROVIDERS: PCP Family Medicine; Referring Provider Family Medicine; Visit Provider Family Medicine
DX: E11.9 Type 2 diabetes mellitus without complications (principal); I10 Essential (primary) hypertension; E78.2 Mixed hyperlipidemia; R32 Unspecified urinary incontinence
CPT/HCPCS: 80053; 80061; 82043; 82570

== ENCOUNTER 2025-08-15 07:25 | Outpatient (CLI) | payer MEDICARE, BC, SELFPAY | END 2025-08-15 07:26 | disposition home or self-care (01) | LOC: NFLDREF 08-19 12:51 | PROVIDERS: PCP Family Medicine; Referring Provider Family Medicine; Visit Provider Family Medicine | DX: E11.9 Type 2 diabetes mellitus without complications (principal) | CPT/HCPCS: 80053; 80061; 82043; 82570 ==